=== PATIENT | female | born 1970 | race Caucasian/White ===

== ENCOUNTER → 2019-02-23 | Outpatient (CLI) | payer MEDICAID ==
[~2019-02-23] MED LIST: CITA10TA; CPR500T PO; MTF500T; PRM25T PO; RIZA10TA23
--- NOTE | 2019-02-23 12:14 | Diagnostic Imaging Report ---
INDICATION: Chronic low back pain. TIME OF EXAM: 11:57 AM 3 views lumbar spine were obtained. FINDINGS: Curvature and alignment is normal. Vertebral body heights are well-maintained. No acute compression fracture is seen. There is degenerative disc disease L2-L3 level with disc space narrowing and marginal spurring. Moderate stool throughout the right colon is noted. IMPRESSION: Lumbar spondylosis. No acute bony abnormality is detected. Dictated by: Dictated on workstation # [id number]
== END ==
LOC: RAD FS 11:50
PROVIDERS: ATTEND Family Medicine
DX: M47.816 Spondylosis without myelopathy or radiculopathy, lumbar region (principal)
CPT/HCPCS: 72100

== ENCOUNTER → 2019-06-14 | Outpatient (CLI) | payer SELFPAY ==
--- NOTE | 2019-06-14 13:04 | Diagnostic Imaging Report ---
INDICATION: Right leg injury and pain. Time of exam 12:53 p.m. FINDINGS: Two views of the right tibia and fibula were obtained. Alignment at the knee and ankle is normal. Tibia and fibula appear to be intact. No fractures are seen. Soft tissues are unremarkable. IMPRESSION: No acute bony abnormality is detected. Dictated by: Dictated on workstation # [id number]
== END ==
LOC: RAD FS 12:39
PROVIDERS: ATTEND Family Medicine
DX: S89.91XA Unspecified injury of right lower leg, initial encounter (principal)
CPT/HCPCS: 73590

== ENCOUNTER → 2020-04-09 | Outpatient (CLI) | payer MEDICAID ==
--- NOTE | 2020-04-09 17:59 | Diagnostic Imaging Report ---
INDICATION: Cervicalgia 3 views of the cervical spine show normal height and alignment of the vertebral bodies. There is mild disc space narrowing and spondylosis at C4-C5. There is moderate disc space narrowing and spondylosis at C6-C7. There are mild degenerated facets. No fracture or other acute abnormality is seen. IMPRESSION: There are degenerative changes present with no acute abnormality seen. Dictated by: Dictated on workstation # [id number]
--- NOTE | 2020-04-09 18:10 | Diagnostic Imaging Report ---
INDICATION: Falling with low back pain. TIME OF EXAM: 05:39 p.m. FINDINGS: Frontal and lateral views of the lumbar spine were obtained. Curvature and alignment is within normal limits. Vertebral body heights are maintained. No acute compression fracture is seen. There is generalized degenerative disc disease with variable disc space narrowing and marginal spurring. There is lower lumbar facet arthropathy. Frontal view does demonstrate a left lower quadrant calcification. This could represent phlebolith versus ureteral calculus. Clinical correlation is recommended. IMPRESSION: Lumbar spondylosis. No acute bony abnormality is detected. Dictated by: Dictated on workstation # [id number]
== END ==
LOC: RAD FS 17:11
PROVIDERS: ATTEND Nurse Practitioner
DX: M47.816 Spondylosis without myelopathy or radiculopathy, lumbar region (principal); M47.812 Spondylosis without myelopathy or radiculopathy, cervical region
CPT/HCPCS: 72040; 72100

== ENCOUNTER 2020-04-21 12:54 | Emergency (ER) | payer MEDICAID ==
[~2020-04-21] VITALS: Ht 160 cm; Wt 91.0 kg
--- OUTSIDE RECORDS SUMMARY | 2020-04-21 13:01 | XMS REPORT | Continuity of Care Document ---
Author Organization Unknown Address Unknown Phone Unavailable Allergies Active Description Code Type Severity Reaction Onset Reported/Identified Relationship to Patient Clinical Status Yes hydrocodone [id number] Drug Aller gy Mild N/A 06/28/2009 Medications There is no data. Problems Date Dx Coded Attending Type Code Diagnosis Diagnosed By 03/08/2019 NATHAN VEGA, BONY Tolbert Ot M47.816 SPONDYLOSIS W/O MYELOPATHY OR RADICULOPA 06/14/2019 BONY EVANS MD, Ot M47.816 SPONDYLOSIS W/O MYELOPATHY OR RADICULOPA 06/16/2019 NATHAN VEGA, BONY Tolbert Ot S89.91XA UNSPECIFIED INJURY OF RIGHT LOWER LEG, I 04/09/2020 NATHAN VEGA, BONY Tolbert Ot M47.816 SPONDYLOSIS W/O MYELOPATHY OR RADICULOPA 04/09/2020 BONY EVANS MD Ot S89.91XA UNSPECIFIED INJURY OF RIGHT LOWER LEG, I Procedures There is no data. Results Test Result Range TSH w/ FREE T4 - 02/16/19 11:59 TSH 6.68 mIU/L NRG T4, FREE 1.1 ng/dL 0.8-1.8 CMP - 02/16/19 11:59 GLUCOSE 78 mg/dL 65-99 UREA NITROGEN (BUN) 12 mg/dL 7-25 CREATININE 0.77 mg/dL 0.50-1.10 eGFR NON-AFR. GREEK 91 mL/min/1.73m2 > OR = 60 eGFR 105 mL/min/1.73m2 > OR = 60 BUN/CREATININE RATIO NOT APPLICABLE (calc) 6-22 SODIUM 140 mmol/L 135-146 POTASSIUM 4.5 mmol/L 3.5-5.3 CHLORIDE 102 mmol/L 98-110 CARBON DIOXIDE 35 mmol/L 20-32 CALCIUM 9.5 mg/dL 8.6-10.2 PROTEIN, TOTAL 7.1 g/dL 6.1-8.1 ALBUMIN 4.2 g/dL 3.6-5.1 GLOBULIN 2.9 g/dL (calc) 1.9-3.7 ALBUMIN/GLOBULIN RATIO 1.4 (calc) 1.0-2. 5 BILIRUBIN, TOTAL 0.5 mg/dL 0.2-1.2 ALKALINE PHOSPHATASE 58 U/L 33-115 AST 19 U/L 10-35 ALT 20 U/L 6-29 CBC w/MANUAL DIFF - 02/16/19 11:59 WHITE BLOOD CELL COUNT 6.2 Thousand/uL 3 .8-10.8 RED BLOOD CELL COUNT 4.60 Million/uL 3.8 0-5.10 HEMOGLOBIN 14.4 g/dL 11.7-15.5 HEMATOCRIT 42.8 % 35.0-45.0 MCV 93.0 fL 80.0-100.0 MCH 31.3 pg 27.0-33.0 MCHC 33.6 g/dL 32.0-36.0 RDW 13.0 % 11.0-15.0 PLATELET COUNT 275 Thousand/uL 140-400 MPV 10.8 fL 7.5-12.5 ABSOLUTE NEUTROPHILS 2976 cells/uL 1500- 7800 ABSOLUTE MONOCYTES 558 cells/uL 200-950 ABSOLUTE EOSINOPHILS 496 cells/uL 15-500 ABSOLUTE BASOPHILS 0 cells/uL 0-200 NEUTROPHILS 48.0 % NRG LYMPHOCYTES 35.0 % NRG MONOCYTES 9.0 % NRG EOSINOPHILS 8.0 % NRG BASOPHILS 0 % NRG ABSOLUTE LYMPHOCYTES 2170 cells/uL 850-3 900 PLATELET ESTIMATION ADEQUATE ADEQUATE COMMENT(S) NR CULTURE, URINE - 02/16/19 11:59 CULTURE, URINE, ROUTINE SEE NOTE NR HEPATITIS PROFILE - 06/14/19 12:48 HEPATITIS A IGM NON-REACTIVE NON-REACTI VE HEPATITIS B SURFACE ANTIGEN NON-REACTIVE NON-REACTIVE HEPATITIS B CORE ANTIBODY (IGM) NON-REACTIVE NON-REACTIVE HEPATITIS C ANTIBODY NON-REACTIVE NON-R EACTIVE SIGNAL TO CUT-OFF 0.06 <1.00 CMP - 06/14/19 12:48 GLUCOSE 92 mg/dL 65-99 UREA NITROGEN (BUN) 14 mg/dL 7-25 CREATININE 0.93 mg/dL 0.50-1.10 eGFR NON-AFR. GREEK 72 mL/min/1.73m2 > OR = 60 eGFR 84 mL/min/1.73m2 > OR = 60 BUN/CREATININE RATIO NOT APPLICABLE (calc) 6-22 SODIUM 141 mmol/L 135-146 POTASSIUM 3.7 mmol/L 3.5-5.3 CHLORIDE 103 mmol/L 98-110 CARBON DIOXIDE 29 mmol/L 20-32 CALCIUM 9.3 mg/dL 8.6-10.2 PROTEIN, TOTAL 7.4 g/dL 6.1-8.1 ALBUMIN 4.5 g/dL 3.6-5.1 GLOBULIN 2.9 g/dL (calc) 1.9-3.7 ALBUMIN/GLOBULIN RATIO 1.6 (calc) 1.0-2. 5 BILIRUBIN, TOTAL 0.7 mg/dL 0.2-1.2 ALKALINE PHOSPHATASE 74 U/L 33-115 AST 30 U/L 10-35 ALT 38 U/L 6-29 GC/CHLAMYDIA (SWAB OR URINE)-RAPID - 07/21 18:15 CHLAMYDIA TRACHOMATIS RNA, TMA NOT DETECTED NOT DETECTED NEISSERIA GONORRHOEAE RNA, TMA NOT DETECTED NOT DETECTED COMMENT NRG Encounters ACCT No. Visit Date/Time Discharge Status Pt. Type Provider Facility Loc./Unit Complaint [id number] 04/09/2020 15:40:00 04/09/2020 23:59:5 9 CLS Outpatient MICHEL ALBA [facility] [id number] 04/09/2020 15:40:00 Document Registration [id number] 06/14/2019 11:40:00 Document Registration [id number] 02/16/2019 11:30:00 Document Registration [id number] 10/07/2013 12:35:00 013 23:59:59 CLS Outpatient [id number] 04/09/2020 17:11:00 020 23:59:59 CLS Outpatient MICHEL ALBA APRN [facility] M54.5 M54.2 [id number] 06/14/2019 12:39:00 019 23:59:59 CLS Outpatient BONY EVANS MD [facility] FS S89.91XA [id number] 02/23/2019 11:50:00 019 23:59:59 CLS Outpatient BONY EVANS MD [facility] FS G89.29 M54.5
--- NOTE | 2020-04-21 13:02 | ED General ---
General Chief Complaint: Cough/Cold/Flu Symptoms Stated Complaint: COUGH History of Present Illness Date Seen by Provider: Apr 21, 2020 Time Seen by Provider: 13:01 Initial Comments Patient presenting to emergency department for evaluation of a cough that has been going on for approximately 2 months. She says she is tired of coughing and wanted to be seen today. She says the cough is nonproductive and she denies any fevers chills chest pain nausea vomiting. She says she cannot sleep tonight because she feels short of breath. Patient is in no obvious distress with normal vital signs. Allergies and Home Medications Allergies Coded Allergies: Hydrocodone (Unverified Allergy, Mild, 06/28/09) Home Medications Ciprofloxacin 500 Mg Tablet, 1 TAB PO BID Prescribed by: BRAD REDMOND on 04/17/101745 Citalopram Hydrobromide 10 Mg Tablet, DAILY, (Reported) Rizatriptan Benzoate 10 Mg Tablet, PRN, (Reported) Patient Home Medication List Home Medication List Reviewed: Yes Review of Systems Review of Systems Constitutional: no symptoms reported EENTM: nose congestion Respiratory: cough, short of breath Cardiovascular: no symptoms reported Gastrointestinal: no symptoms reported Musculoskeletal: no symptoms reported Skin: no symptoms reported Psychiatric/Neurological: No Symptoms Reported Past [id number] Hx Patient Social History Recent Foreign Travel: No Contact w/Someone Who Travel: No Physical Exam Vital Signs Vital Signs - First Documented 04/21/20 13:06 Temp 36.2 Pulse 92 Resp 24 B/P (MAP) 149/86 (107) O2 Delivery Room Air Capillary Refill : Height, Weight, BMI Height: '" Weight: lbs. oz. kg; BMI Method:Stated General Appearance: No Apparent Distress, WD/WN Respiratory: No Respiratory Distress, Wheezing Cardiovascular: Regular Rate, Rhythm Extremity: No Pedal Edema Neurologic/Psychiatric: Alert, Oriented x3 Skin: Warm/Dry Progress/Results/Core Measures Suspected Sepsis SIRS Temperature: Pulse: Respiratory Rate: Blood Pressure / Mean: Results/Orders My Orders Orders - PACHECO HOOVER DO Chest 1 View Ap/Pa Only (04/21/20 13:02) Albuterol/Ipra Inhalation Soln (Duoneb I (04/21/20 13:15) Svn Small Volume Nebulizer (04/21/20 13:08) Prednisone Tablet (Deltasone Tablet) (04/21/20 13:15) Benzonatate Capsule (Tessalon Perles) (04/21/20 13:15) Medications Given in ED Current Medications Medications Dose Ordered Sig/Yisel Route Start Time Stop Time Status Last Admin Dose Admin Albuterol/ Ipratropium 3 ml ONCE ONCE INH 04/21/20 13:15 04/21/20 13:16 DC 04/21/20 13:16 3 ML Prednisone 60 mg ONCE ONCE PO 04/21/20 13:15 04/21/20 13:16 DC 04/21/20 13:15 60 MG Vital Signs/I&O 04/21/20 13:06 Temp 36.2 Pulse 92 Resp 24 B/P (MAP) 149/86 (107) O2 Delivery Room Air Capillary Refill : Progress Note : Progress Note Patient with frequent cough likely related to her COPD and continued smoking. She does have congestion with postnasal drip which likely is making symptoms worse. I will check a chest x-ray and treat her here with a DuoNeb prednisone Tessalon and reassess. Appears patient has a pneumonia on her chest x-ray. She continues to saturate in the mid upper 90s and is in no respiratory distress and her cough improved after treatment here. Patient meets the requirements for inpatient treatment however given her COPD I told her she should be rechecked within the next 1-2 days and she should come back to emergency department with worsening shortness of breath fevers or other general concerns. Patient aware and agreeable with plan and verbalized understanding of the above instructions. Departure Impression Primary Impression: Pneumonia Qualified Codes: J18.1 - Lobar pneumonia, unspecified organism Additional Impression: COPD with exacerbation Disposition: 01 HOME, SELF-CARE Condition: Stable Departure-Patient Inst. Referrals: [facility] (PCP) Primary Care Physician MICHEL ALBA APRN (Family) Primary Care Physician Patient Instructions: Pneumonia, Adult (DC) Scripts Azelastine HCl (Azelastine HCl) 137 Mcg/0.137 Ml [place].pump 137 MCG NS BID, #1 EA Prov: PACHECO HOOVER DO 04/21/20 Albuterol Sulfate (PROAIR HFA) 1 Puff Puff 2 PUFF IH Q4H, #1 INHALER 1 PUFF = 90 MCG Prov: PACHECO HOOVER DO 04/21/20 Azithromycin (Azithromycin) 250 Mg Tablet 250 MG PO UD, #6 TAB TAKE 2 TABLETS ON DAY ONE THEN TAKE 1 TABLET DAILY FOR FOUR MORE DAYS Prov: PACHECO HOOVER DO 04/21/20 Benzonatate (TESSALON PERLES) 100 Mg Capsule 100 MG PO TID PRN for COUGH, #14 CAP Prov: PACHECO HOOVER DO 04/21/20 Prednisone (Prednisone) 20 Mg Tab 60 MG PO DAILY, #12 TAB 0 Refills Prov: PACHECO HOOVER DO 04/21/20 PACHECO HOOVER DO Apr 21, 2020 13:02
[2020-04-21] MEDS ORDERED: BENZONATATE 100 MG (TESSALON) CAPSULE PO SCH (13:15)
[2020-04-21] MEDS ORDERED: RT-ALBUTEROL/IPRATROPIUM 3 ML (DUONEB) VIAL INH ONE (13:15)
[2020-04-21] MEDS ORDERED: predniSONE 20 MG TAB PO ONE (13:15)
--- NOTE | 2020-04-21 13:28 | Diagnostic Imaging Report ---
CLINICAL INDICATION: Patient with cough x2 months. Patient has history of COPD. EXAM: Portable chest x-ray upright view. COMPARISON: None. FINDINGS: There is mild patchy airspace opacity in the right lower lung field region which may represent small lung infiltrate. There is linear lung markings throughout the upper lung field regions which may be chronic. The remainder of the lungs are clear. There is no pleural effusion or pneumothorax. Pulmonary vasculature and cardiac silhouette is within normal limits. There are degenerative spurs involving the spine. IMPRESSION: 1: There is a subtle airspace opacity involving the right lower lung field region concerning for lung infiltrate. 2: Suspected chronic lung changes involving both upper lung renee. Dictated by: Dictated on workstation # [id number]
[2020-04-21] MEDS ORDERED: AZEL137S11 NS (13:39)
[2020-04-21] MEDS ORDERED: BENZ100C18 PO (13:39)
[2020-04-21] MEDS ORDERED: RT-ALBUINH IH (13:39)
[2020-04-21] MEDS ORDERED: AZIT250T12 PO (13:39)
[2020-04-21] MEDS ORDERED: PRD20T PO (13:39)
[2020-04-21 13:49] VITALS: BP 124/62
== END 2020-04-21 13:45 | disposition home or self-care (01) ==
LOC: EDUNIT# 12:54 → ER FS 12:55
DX: J18.9 Pneumonia, unspecified organism (principal); J44.1 Chronic obstructive pulmonary disease with (acute) exacerbation; J44.0 Chronic obstructive pulmonary disease with (acute) lower respiratory infection; Z88.5 Allergy status to narcotic agent
CPT/HCPCS: 71045; 94640

== ENCOUNTER → 2020-05-15 | Outpatient (CLI) | payer MEDICAID ==
[~2020-05-15] MED LIST changes: +AZEL137S11 NS; +AZIT250T12 PO; +BENZ100C18 PO; +PRD20T PO; +RT-ALBUINH IH
--- NOTE | 2020-05-15 10:30 | Diagnostic Imaging Report ---
EXAMINATION: CHEST (PA AND LATERAL) CLINICAL INDICATION: 49-year-old female, cough. Pneumonia. COMPARISON: April 21, 2020. FINDINGS: Heart size and mediastinal contours are unremarkable. There is no identified pneumothorax. There is no pleural effusion. There is no identified focal airspace consolidation. Previously questioned areas of opacity in the right mid and lower lung zone on comparison radiographs are not well seen currently. IMPRESSION: 1. No identified acute cardiopulmonary abnormality. Dictated by: Dictated on workstation # [id number]
[2020-05-15 10:41] LABS: BASOPHILS % (AUTO) 1 % (0-10); EOSINOPHILS # (AUTO) 0.4 10^3/uL (0.0-0.3); EOSINOPHILS % (AUTO) 5 % (0-10); HEMATOCRIT 45 % (35-52); HEMOGLOBIN 14.6 G/DL (11.5-16.0); LYMPHOCYTES # (AUTO) 1.9 X 10^3 (1.0-4.0); LYMPHOCYTES % (AUTO) 22 % (12-44); MEAN CORPUSCULAR HEMOGLOBIN 31 PG (25-34); MEAN CORPUSCULAR HGB CONC 33 G/DL (32-36); MEAN CORPUSCULAR VOLUME 94 FL (80-99); MONOCYTES # (AUTO) 0.5 X 10^3 (0.0-1.0); MONOCYTES % (AUTO) 6 % (0-12); NEUTROPHILS # (AUTO) 5.5 X 10^3 (1.8-7.8); NEUTROPHILS % (AUTO) 66 % (42-75); PLATELET COUNT 251 10^3/uL (130-400); RED CELL DISTRIBUTION WIDTH 13.3 % (10.0-14.5); WHITE BLOOD COUNT 8.4 10^3/uL (4.3-11.0)
[2020-05-15 10:56] LABS: ALANINE AMINOTRANSFERASE 20 U/L (0-55); ALKALINE PHOSPHATASE 92 U/L (40-136); BILIRUBIN,TOTAL 0.3 MG/DL (0.1-1.0); BUN/CREATININE RATIO 14; CALCIUM 9.1 MG/DL (8.5-10.1); CARBON DIOXIDE 26 MMOL/L (21-32); CHLORIDE 103 MMOL/L (98-107); CREATININE SERUM 0.71 MG/DL (0.60-1.30); GFR ESTIMATED > 60; GLUCOSE 97 MG/DL (70-105); POTASSIUM 4.5 MMOL/L (3.6-5.0); SODIUM 139 MMOL/L (135-145); TOTAL PROTEIN 7.1 GM/DL (6.4-8.2)
== END ==
LOC: LAB FS 09:46
PROVIDERS: ATTEND Family Medicine
DX: J44.9 Chronic obstructive pulmonary disease, unspecified (principal); Z20.828 Contact with and (suspected) exposure to other viral communicable diseases
CPT/HCPCS: 36415; 71046; 80053; 85025; U0002; 87635

== ENCOUNTER 2020-06-03 20:19 | Emergency (ER) | payer MEDICAID ==
[~2020-06-03] VITALS: Ht 160 cm; Wt 90.7 kg
[2020-06-03 21:29] LABS: BASOPHILS % (AUTO) 0 % (0-10); EOSINOPHILS # (AUTO) 0.5 10^3/uL (0.0-0.3); EOSINOPHILS % (AUTO) 6 % (0-10); HEMATOCRIT 42 % (35-52); LYMPHOCYTES # (AUTO) 2.3 X 10^3 (1.0-4.0); LYMPHOCYTES % (AUTO) 31 % (12-44); MEAN CORPUSCULAR HEMOGLOBIN 31 PG (25-34); MEAN CORPUSCULAR HGB CONC 33 G/DL (32-36); MEAN CORPUSCULAR VOLUME 94 FL (80-99); MEAN PLATELET VOLUME 10.7 FL (7.4-10.4); MONOCYTES # (AUTO) 0.5 X 10^3 (0.0-1.0); MONOCYTES % (AUTO) 7 % (0-12); NEUTROPHILS # (AUTO) 4.2 X 10^3 (1.8-7.8); NEUTROPHILS % (AUTO) 56 % (42-75); PLATELET COUNT 271 10^3/uL (130-400); RED CELL DISTRIBUTION WIDTH 13.9 % (10.0-14.5); WHITE BLOOD COUNT 7.6 10^3/uL (4.3-11.0)
--- NOTE | 2020-06-03 21:31 | Diagnostic Imaging Report ---
INDICATION: Shortness of breath Frontal chest obtained at 09:12 p.m. and compared to 05/15/2020. FINDINGS: The heart is normal in size. There is mild central vascular prominence which is increased compared to the prior study. There is no definite consolidation or pneumothorax or pleural fluid. There mild chronic appearing increased interstitial markings. IMPRESSION: Mild increased central vascular prominence compared to the prior study. No new consolidation or pleural fluid. Dictated by: Dictated on workstation # [id number]
[2020-06-03 21:43] LABS: FIBRIN DEGRADATION PRODUCTS 1.32 UG/ML (0.00-0.49); INR 0.9 (0.8-1.4); PROTHROMBIN TIME PATIENT 12.4 SEC (12.2-14.7)
[2020-06-03 21:51] LABS: ALANINE AMINOTRANSFERASE 19 U/L (0-55); ALBUMIN 3.7 GM/DL (3.2-4.5); ALKALINE PHOSPHATASE 66 U/L (40-136); BILIRUBIN,TOTAL 0.4 MG/DL (0.1-1.0); BUN/CREATININE RATIO 10; CALCIUM 8.9 MG/DL (8.5-10.1); CARBON DIOXIDE 26 MMOL/L (21-32); CHLORIDE 102 MMOL/L (98-107); CREATININE SERUM 0.79 MG/DL (0.60-1.30); GFR ESTIMATED > 60; GLUCOSE 106 MG/DL (70-105); MAGNESIUM 2.1 MG/DL (1.6-2.4); POTASSIUM 4.5 MMOL/L (3.6-5.0); SODIUM 139 MMOL/L (135-145); TOTAL PROTEIN 6.8 GM/DL (6.4-8.2)
[2020-06-03] MEDS ORDERED: RX-ALBUTEROL INHALER 8 GM HFA (VENTOLIN) IH STA (21:51)
[2020-06-03 21:53] LABS: ERYTHROCYTE SEDIMENTATION RATE 14 MM/HR (0-30)
--- NOTE | 2020-06-03 21:54 | ED Respiratory ---
General Chief Complaint: Cough/Cold/Flu Symptoms Stated Complaint: SOB/COUGH Nursing Triage Note: Assisted pt via ED w/c from POV with c/o SOA et cough. Pt reports onset of s/s began on 05/15/20 when she was diagnosed with bronchitis. Initial SPO2 94% via RA with labored breathing noted. Pt reports increase in severity of cough et SOA. Pt denies fever or chills. A&OX4. Source: patient (SOMEWHAT DIFFICULT/LIMITED HISTORIAN) History of Present Illness Date Seen by Provider: Jun 03, 2020 Time Seen by Provider: 21:00 Initial Comments PT ARRIVES VIA POV FROM [place] C/O SHORTNESS OF BREATH C/O CHEST DISCOMFORT--RIBS HURT TO COUGH AND HER CHEST "JUST HURTS ALL THE TIME" C/O NON-PRODUCTIVE COUGH STATES SYMPTOMS ONGOING FOR OVER 3 MONTHS, GETTING WORSE NO FEVER/SWEATS/CHILLS NO SWELLING IN LEGS/FEET OR PAIN IN CALVES NO SORE THROAT OR CHANGES IN TASTE OR SMELL NO NASAL DRAINAGE OR SINUS PAIN NO GI SYMPTOMS NO URINARY SYMPTOMS PT SEEN AT [facility] 04/21/20 FOR THESE SYMPTOMS. HAD REPORTED THAT SHE HAD A COUGH FOR 2 MONTHS AT THAT TIME. NO COVID TESTING PERFORMED AT THAT TIME SHE WAS DX WITH RLL PNEUMONIA AND SENT HOME WITH RX'S FOR AZELASTINE, ALBUTEROL INHALER, ZITHROMAX, TESSALON, PREDNISONE. UNABLE TO STATE IF HER SYMPTOMS IMPROVED WITH THOSE MEDICATIONS. SAW DR. EVANS 05/15/20 FOR SAME SYMPTOMS. HAD OUTPATIENT COVID TEST AND WAS NEGATIVE. NO OTHER TESTS WERE DONE. GIVEN RX FOR PREDNISONE. AGAIN IS UNABLE TO STATE IF HER SYMPTOMS IMPROVED ON MEDICATIONS. HAS NOT ATTEMPTED TO FOLLOW UP WITH DR. EVANS AT ANY TIME SINCE. HAS HISTORY OF COPD AND CONTINUES TO SMOKE UP TO 2 PPD PT HAS BEEN PRESCRIBED 3 INHALERS, CLAIMS SHE HAS BEEN USING THEM--LAST USED ALBUTEROL A FEW HOURS AGO. DOES NOT HAVE A SPACER HAS BEEN PRESCRIBED SPIRIVA ON 03/18/20-NOT FILLED SINCE THEN PRESCRIBED FLUTICASONE/SALMETEROL ON 05/22/20 PRESCRIBED ALBUTEROL INHALER 05/26/20 PCP: DR. EVANS Allergies and Home Medications Allergies Coded Allergies: Hydrocodone (Unverified Allergy, Mild, 06/28/09) Home Medications Albuterol Sulfate 1 Puff Puff, 2 PUFF IH Q4H 1 PUFF = 90 MCG Prescribed by: PACHECO HOOVER on 04/21/201338 Azelastine HCl 137 Mcg/0.137 Ml [place].pump, 137 MCG NS BID Prescribed by: PACHECO HOOVER on 04/21/201338 Azithromycin 250 Mg Tablet, 250 MG PO UD TAKE 2 TABLETS ON DAY ONE THEN TAKE 1 TABLET DAILY FOR FOUR MORE DAYS Prescribed by: PACHECO HOOVER on 04/21/201338 Azithromycin 500 Mg Tablet, 500 MG PO DAILY Prescribed by: VERONICA GONZALEZ on 06/04/2022 Benzonatate 100 Mg Capsule, 100 MG PO TID PRN for COUGH Prescribed by: PACHECO HOOVER on 04/21/201338 Benzonatate 100 Mg Capsule, 100-200 MG PO TID Prescribed by: VERONICA GONZALEZ on 06/04/2022 Cefdinir 300 Mg Capsule, 300 MG PO BID Prescribed by: VERONICA GONZALEZ on 06/04/2022 Ciprofloxacin 500 Mg Tablet, 1 TAB PO BID Prescribed by: BRAD REDMOND on 04/17/10 1746 Citalopram Hydrobromide 10 Mg Tablet, DAILY, (Reported) Guaifenesin/Dextromethorphan 1 Each Tbmp.12hr, 1 EACH PO BID Prescribed by: VERONICA GONZALEZ on 06/04/2022 Methylprednisolone 4 Mg Tab.ds.pk, 4 MG PO UD PER DOSE PACK INSTRUCTIONS Prescribed by: VERONICA GONZALEZ on 06/04/2022 Prednisone 20 Mg Tab, 60 MG PO DAILY Prescribed by: PACHECO HOOVER on 04/21/201338 Rizatriptan Benzoate 10 Mg Tablet, PRN, (Reported) Patient Home Medication List Home Medication List Reviewed: Yes Review of Systems Review of Systems Constitutional: no symptoms reported; No chills, No diaphoresis, No fever EENTM: no symptoms reported; No ear pain, No nose congestion, No throat pain Respiratory: see HPI, cough, short of breath Cardiovascular: see HPI, chest pain Gastrointestinal: no symptoms reported Genitourinary: no symptoms reported Musculoskeletal: no symptoms reported Skin: no symptoms reported Psychiatric/Neurological: No Symptoms Reported Hematologic/Lymphatic: No Symptoms Reported Immunological/Allergic: no symptoms reported Past Hzhaweu-Dgzzlc-Fgmres Hx Past Med/Social Hx: Reviewed and Corrections made Patient Social History Alcohol Use: Denies Use Recreational Drug Use: Yes (THC) Drug of Choice: MARIJUANA Smoking Status: Current Everyday Smoker (2 PPD) Type Used: Cigarettes (2 PPD) 2nd Hand Smoke Exposure: Yes Recent Foreign Travel: No Contact w/Someone Who Travel: No Recent Infectious Disease Expo: No Recent Hopitalizations: No Physical Abuse: No Sexual Abuse: No Mistreated: No Fear: No Seasonal Allergies Seasonal Allergies: No Past Medical History Surgeries: Yes Section, Eye Surgery, Hysterectomy Respiratory: Yes COPD, Emphysema Cardiac: Yes Hypertension Neurological: Yes Seizure Disorder Female Reproductive Disorders: Denies MANAGER INFORMATION History: Menopausal (NO PERIOD FOR OVER A YEAR) Genitourinary: No Gastrointestinal: Yes (HEPATITIS B & LIVER FAILURE--STATES SHE WAS AT [facility]/CANNOT GIVE DETAILS OF [place]) Hepatitis Musculoskeletal: Yes (CHRONIC GENERALIZED PAIN) Degenerate Disk Disease, Chronic Back Pain Endocrine: Yes (CLAIMS "GESTATIONAL DIABETES FOR 12 YEARS-IT NEVER WENT AWAY"- NO MEDS) Diabetes, Non-Insulin dep HEENT: No Cancer: No Psychosocial: Yes Anxiety, Bipolar, Depression Integumentary: No Blood Disorders: No Physical Exam Vital Signs - First Documented 06/03/20 21:05 Temp 36.2 Pulse 76 Resp 26 B/P (MAP) 143/77 (99) Pulse Ox 94 O2 Delivery Room Air Capillary Refill : Less Than 3 Seconds Height: '" Weight: lbs. oz. kg; 35.00 BMI Method:Stated General Appearance: WD/WN, no apparent distress, other (UNKEMPT, MULTICOLORED HAIR--PINK, GREEN, OTHER COLORS. NO DYSPNEA ON MY EXAM. PT TALKS IN FULL SENTENCES. 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 tested, no motor/sensory deficits, alert, oriented x 3, other (ANXIOUS) Skin: normal color, warm/dry, tattoos/piercings Focused Exam Lactate Level 06/03/20 21:15: Lactic Acid Level 1.09 Lactic Acid Level Laboratory Tests Test 06/03/20 21:15 Lactic Acid Level 1.09 MMOL/L (0.50-2.00) Progress/Results/Core Measures Suspected Sepsis Recent Fever Within 48 Hours: No New/Unexplained Altered Menta: No SIRS Temperature: Pulse: 76 Respiratory Rate: 26 Laboratory Tests 06/03/20 21:15: White Blood Count 7.6 Blood Pressure 143 /77 Mean: 99 06/03/20 21:15: Lactic Acid Level 1.09 Laboratory Tests 06/03/20 21:15: Creatinine 0.79, INR Comment 0.9, Platelet Count 271, Total Bilirubin 0.4 Results/Orders Lab Results Laboratory Tests Test 06/03/20 21:15 06/03/20 21:25 06/03/20 23:25 Range/Units White Blood Count 7.6 4.3-11.0 10^3/uL Red Blood Count 4.50 4.35-5.85 10^6/uL Hemoglobin 14.0 11.5-16.0 G/DL Hematocrit 42 35-52 % Mean Corpuscular Volume 94 80-99 FL Mean Corpuscular Hemoglobin 31 25-34 PG Mean Corpuscular Hemoglobin Concent 33 32-36 G/DL Red Cell Distribution Width 13.9 10.0-14.5 % Platelet Count 271 130-400 10^3/uL Mean Platelet Volume 10.7 H 7.4-10.4 FL Neutrophils (%) (Auto) 56 42-75 % Lymphocytes (%) (Auto) 31 12-44 % Monocytes (%) (Auto) 7 0-12 % Eosinophils (%) (Auto) 6 0-10 % Basophils (%) (Auto) 0 0-10 % Neutrophils # (Auto) 4.2 1.8-7.8 X 10^3 Lymphocytes # (Auto) 2.3 1.0-4.0 X 10^3 Monocytes # (Auto) 0.5 0.0-1.0 X 10^3 Eosinophils # (Auto) 0.5 H 0.0-0.3 10^3/uL Basophils # (Auto) 0.0 0.0-0.1 10^3/uL Erythrocyte Sedimentation Rate 14 0-30 MM/HR Prothrombin Time 12.4 12.2-14.7 SEC INR Comment 0.9 0.8-1.4 Activated Partial Thromboplast Time 26 24-35 SEC D-Dimer 1.32 H 0.00-0.49 UG/ML Sodium Level 139 135-145 MMOL/L Potassium Level 4.5 3.6-5.0 MMOL/L Chloride Level 102 98-107 MMOL/L Carbon Dioxide Level 26 21-32 MMOL/L Anion Gap 11 5-14 MMOL/L Blood Urea Nitrogen 8 7-18 MG/DL Creatinine 0.79 0.60-1.30 MG/DL Estimat Glomerular Filtration Rate > 60 BUN/Creatinine Ratio 10 Glucose Level 106 H 70-105 MG/DL Lactic Acid Level 1.09 0.50-2.00 MMOL/L Calcium Level 8.9 8.5-10.1 MG/DL Corrected Calcium 9.1 8.5-10.1 MG/DL Magnesium Level 2.1 1.6-2.4 MG/DL Total Bilirubin 0.4 0.1-1.0 MG/DL Aspartate Amino Transf (AST/SGOT) 19 5-34 U/L Alanine Aminotransferase (ALT/SGPT) 19 0-55 U/L Alkaline Phosphatase 66 40-136 U/L Lactate Dehydrogenase 293 H 125-220 U/L Troponin I < 0.028 <0.028 NG/ML C-Reactive Protein High Sensitivity 2.63 H 0.00-0.50 MG/DL B-Type Natriuretic Peptide 20.1 <100.0 PG/ML Total Protein 6.8 6.4-8.2 GM/DL Albumin 3.7 3.2-4.5 GM/DL Procalcitonin 0.02 <0.10 NG/ML Urine Color YELLOW Urine Clarity SL CLOUDY Urine pH 8.5 5-9 Urine Specific [place] 1.020 1.016-1.022 Urine Protein NEGATIVE NEGATIVE Urine Glucose (UA) NEGATIVE NEGATIVE Urine Ketones NEGATIVE NEGATIVE Urine Nitrite POSITIVE H NEGATIVE Urine Bilirubin NEGATIVE NEGATIVE Urine Urobilinogen 1.0 < = 1.0 MG/DL Urine Leukocyte Esterase TRACE H NEGATIVE Urine RBC (Auto) NEGATIVE NEGATIVE Urine RBC NONE /HPF Urine WBC 10-25 H /HPF Urine Squamous Epithelial Cells 0-2 /HPF Urine Crystals NONE /LPF Urine Bacteria LARGE H /HPF Urine Casts NONE /LPF Urine Mucus NEGATIVE /LPF Urine Culture Indicated YES Urine Opiates Screen NEGATIVE NEGATIVE Urine Oxycodone Screen NEGATIVE NEGATIVE Urine Methadone Screen NEGATIVE NEGATIVE Urine Propoxyphene Screen NEGATIVE NEGATIVE Urine Barbiturates Screen NEGATIVE NEGATIVE Ur Tricyclic Antidepressants Screen NEGATIVE NEGATIVE Urine Phencyclidine Screen NEGATIVE NEGATIVE Urine Amphetamines Screen NEGATIVE NEGATIVE Urine Methamphetamines Screen NEGATIVE NEGATIVE Urine Benzodiazepines Screen NEGATIVE NEGATIVE Urine Cocaine Screen NEGATIVE NEGATIVE Urine Cannabinoids Screen POSITIVE H NEGATIVE My Orders Orders - VERONICA GONZALEZ DO Ed Iv/Invasive Line Start (06/03/20 21:00) Ekg Tracing (06/03/20 21:00) Monitor-Rhythm Ecg Trace Only (06/03/20 21:00) BNP (06/03/20:00) Cbc With Automated Diff (06/03/20:00) Comprehensive Metabolic Panel (06/03/20:00) Hs C Reactive Protein (06/03/20:00) Fibrin Degradation Products (06/03/20:00) Lactic Acid Analyzer (06/03/20:00) Magnesium (06/03/20:00) Protime With Inr (06/03/20:00) Partial Thromboplastin Time (06/03/20 21:00) Blood Culture (06/03/20 21:00) Erythrocyte Sedimentation Rate (06/03/20 21:00) Procalcitonin (Pct) (06/03/20 21:00) LDH (06/03/20 21:00) Chest 1 View, Ap/Pa Only (06/03/20 21:00) Coronavirus Sars-Cov-2 So 2018 (06/03/20 21:00) Methylprednisolone Sod Succ (Solu-Medrol (06/03/20 22:00) Rx-Albuterol Inhaler (Rx-Ventolin Hfa In (06/03/20 21:51) Benzonatate Capsule (Tessalon Perles) (06/03/20 22:00) Ct Angio Chest W (06/03/20 22:13) Troponin I (06/03/20 22:21) Iohexol Injection (Omnipaque 350 Mg/Ml 1 (06/03/20 23:45) Received Contrast (Hold Metformin- Contr (06/03/20 23:45) Ns (Ivpb) (Sodium Chloride 0.9% Ivpb Bag (06/03/20 23:45) Drug Screen Stat (Urine) (06/03/20 23:50) Ua Culture If Indicated (06/03/20 23:50) Azithromycin Tablet (Zithromax Tablet) (06/04/20 00:15) Urine Culture (06/03/20 23:25) Ceftriaxone For Iv Use (Rocephin For I (06/04/20 00:30) Medications Given in ED Current Medications Medications Dose Ordered Sig/Yisel Route Start Time Stop Time Status Last Admin Dose Admin Azithromycin 500 mg ONCE ONCE PO 06/04/20 00:15 06/04/20 00:16 DC 06/04/20 00:47 500 MG Ceftriaxone Sodium 1000 mg/ Sterile Water 10 ml @ 200 mls/hr ONCE ONCE IV 06/04/20 00:30 06/04/20 00:32 DC 06/04/20 00:47 200 MLS/HR Iohexol 100 ml ONCE ONCE IV 06/03/20 23:45 06/03/20 23:46 DC 06/03/20 23:46 100 ML Methylprednisolone Sodium Succinate 125 mg ONCE ONCE IVP 06/03/20 22:00 06/03/20 22:01 DC 06/03/20 22:00 125 MG Sodium Chloride 100 ml ONCE ONCE IV 06/03/20 23:45 06/03/20 23:46 DC 06/03/20 23:46 80 ML Vital Signs/I&O 06/03/20 06/03/20 06/04/20 21:05 21:05 00:59 Temp 36.2 36.2 Pulse 76 81 Resp 26 22 B/P (MAP) 143/77 (99) 137/85 (99) Pulse Ox 94 92 O2 Delivery Room Air Room Air Room Air Capillary Refill : Less Than 3 Seconds Blood Pressure Mean: 99 Progress Note : Progress Note PT PLACED IN ISOLATION ROOM AND PPE WORN AT ALL TIMES COVID-19 TESTING PERFORMED GIVEN INHALER WITH SPACER TREATMENT GIVEN SOLU-MEDROL GIVEN COUGH MEDICATION ALL WITH IMPROVEMENT IN SYMPTOMS--NO COUGH AT DISMISSAL AND NO LONGER COMPLAINS OF SHORTNESS OF BREATH AND CHEST DISCOMFORT IS LESS NO DETERIORATION IN PT'S CONDITION NO HYPOXIA OR DYSPNEA DURING ER STAY VITALS STABLE ECG Initial ECG Impression Date: Jun 03, 2020 Initial ECG Impression Time: 21:20 Initial ECG Rate: 71 Initial ECG Rhythm: Normal Sinus Initial ECG Impression: Normal Diagnostic Imaging Comments CXR--PER RADIOLOGIST REPORT AT 2152 FINDINGS: The heart is normal in size. There is mild central vascular prominence which is increased compared to the prior study. There is no definite consolidation or pneumothorax or pleural fluid. There mild chronic appearing increased interstitial markings. IMPRESSION: Mild increased central vascular prominence compared to the prior study. No new consolidation or pleural fluid. CT CHEST ANGIOGRAM--NO P.E. BILATERAL GROUND GLASS OPACITIES, CONCERNING FOR COVID OR OTHER ATYPICAL INFECTION. PER [facility] VIA FAX AT [phone] Reviewed: Reviewed by Me Departure Impression Primary Impression: COVD P.U.I. Additional Impression: Pneumonitis Disposition: HOME, SELF-CARE Condition: Improved Departure-Patient Inst. Referrals: BONY EVANS MD (PCP/Family) Primary Care Physician Patient Instructions: Coronavirus Disease 2019 (COVID-19) (DC), Pneumonitis (DC) Add. Discharge Instructions: HOME, REST USE YOUR INHALERS PRESCRIBED--USE SPACER AT ALL TIMES TYLENOL AND MOTRIN NEEDED FOR PAIN OR FEVER LOTS OF CLEAR LIQUIDS NO SMOKING!!! FOLLOW UP WITH DR. EVANS THIS WEEK FOR FURTHER CARE, CALL IN AM FOR APPOINTMENT RETURN TO ER IF WORSE All discharge instructions reviewed with patient and/or family. Voiced understanding. Scripts Guaifenesin/Dextromethorphan (Mucinex Dm ER 1,200-60 mg Tab) 1 Each Tbmp.12hr 1 EACH PO BID, #20 EA Prov: VERONICA GONZALEZ DO 06/04/20 Benzonatate (TESSALON PERLES) 100 Mg Capsule 100-200 MG PO TID, #30 CAP Prov: VERONICA GONZALEZ DO 06/04/20 Methylprednisolone (Medrol) 4 Mg Tab.ds.pk 4 MG PO UD for 6 Days, #21 PKG PER DOSE PACK INSTRUCTIONS Prov: VERONICA GONZALEZ DO 06/04/20 Azithromycin (Zithromax) 500 Mg Tablet 500 MG PO DAILY for 5 Days, #5 TAB Prov: VERONICA GONZALEZ DO 06/04/20 Cefdinir (Cefdinir) 300 Mg Capsule 300 MG PO BID, #20 CAP Prov: VERONICA GONZALEZ DO 06/04/20 VERONICA GONZALEZ DO Jun 03, 2020 21:54
[2020-06-03] MEDS ORDERED: BENZONATATE 100 MG (TESSALON) CAPSULE PO SCH (22:00)
[2020-06-03] MEDS ORDERED: methylPREDNISolone 125 MG (Solu-MEDROL) VIAL IVP ONE (22:00)
[2020-06-03] MEDS ORDERED: IOHEXOL 350 MG/ML 100 ML (OMNIPAQUE 350) VIAL IV ONE (23:45)
[2020-06-03] MEDS ORDERED: HOLD METFORMIN - RECEIVED CONTRAST 20 ML VIAL IV SCH (23:45)
[2020-06-03] MEDS ORDERED: NS 100 ML (IVPB) BAG IV ONE (23:45)
[2020-06-03 23:57] LABS: BILIRUBIN,URINE NEGATIVE (NEGATIVE); CLARITY,URINE SL CLOUDY; COLOR,URINE YELLOW; GLUCOSE, URINE (UA) NEGATIVE (NEGATIVE); KETONES,URINE NEGATIVE (NEGATIVE); LEUKOCYTE ESTERASE ,URINE TRACE (NEGATIVE); NITRITE,URINE POSITIVE (NEGATIVE); PH,URINE 8.5 (5-9); PROTEIN,URINE NEGATIVE (NEGATIVE)
--- OUTSIDE RECORDS SUMMARY | 2020-06-04 00:02 | XMS REPORT | Continuity of Care Document ---
Author Organization Unknown Address Unknown Phone Unavailable Allergies Active Description Code Type Severity Reaction Onset Reported/Identified Relationship to Patient Clinical Status Yes hydrocodone [id number] Drug Aller gy Mild N/A 06/28/2009 Medications There is no data. Problems Date Dx Coded Attending Type Code Diagnosis Diagnosed By 03/08/2019 BONY EVANS MD, Ot M47.816 SPONDYLOSIS W/O MYELOPATHY OR RADICULOPA 06/14/2019 BONY EVANS MD, Ot M47.816 SPONDYLOSIS W/O MYELOPATHY OR RADICULOPA 06/16/2019 BONY EVANS MD, Ot S89.91XA UNSPECIFIED INJURY OF RIGHT LOWER LEG, I 04/09/2020 BONY EVANS MD, Ot M47.816 SPONDYLOSIS W/O MYELOPATHY OR RADICULOPA 04/09/2020 BONY EVANS MD, Ot S89.91XA UNSPECIFIED INJURY OF RIGHT LOWER LEG, I 04/21/2020 PACHECO HOOVER DO Ot J18 .9 PNEUMONIA, UNSPECIFIED ORGANISM 04/21/2020 PACHECO HOOVER DO Ot J44 .0 CHR OBSTRUCTIVE PULMON DISEASE WITH (ACU 04/21/2020 PACHECO HOOVER DO Ot J44 .1 CHRONIC OBSTRUCTIVE PULMONARY DISEASE W 04/21/2020 PACHECO HOOVER DO Ot R05 COUGH 04/21/2020 PACHECO HOOVER DO Ot Z88 .5 ALLERGY STATUS TO NARCOTIC AGENT STATUS 04/24/2020 MICHEL ALBA APRN Ot M47.812 SPONDYLOSIS W/O MYELOPATHY OR RADICULOPA 04/24/2020 MICHEL ALBA APRN Ot M47.816 SPONDYLOSIS W/O MYELOPATHY OR RADICULOPA 05/15/2020 BONY EVANS MD, Ot M47.816 SPONDYLOSIS W/O MYELOPATHY OR RADICULOPA 05/15/2020 BONY EVANS MD, Ot S89.91XA UNSPECIFIED INJURY OF RIGHT LOWER LEG, I 05/15/2020 MICHEL ALBA APRN Ot M47.812 SPONDYLOSIS W/O MYELOPATHY OR RADICULOPA 05/15/2020 MICHEL ALBA APRN Ot M47.816 SPONDYLOSIS W/O MYELOPATHY OR RADICULOPA 05/21/2020 NATHAN VEGA, BONY Tolbert Ot J44 .9 CHRONIC OBSTRUCTIVE PULMONARY DISEASE, U 05/21/2020 BONY EVANS MD Ot Z20.828 CONTACT W AND EXPOSURE TO OTH VIRAL COMM 06/03/2020 BONY EVANS MD Ot M47.816 SPONDYLOSIS W/O MYELOPATHY OR RADICULOPA 06/03/2020 BONY EVANS MD Ot S89.91XA UNSPECIFIED INJURY OF RIGHT LOWER LEG, I 06/03/2020 MICHEL ALBA APRN Ot M47.812 SPONDYLOSIS W/O MYELOPATHY OR RADICULOPA 06/03/2020 MICHEL ALBA APRN Ot M47.816 SPONDYLOSIS W/O MYELOPATHY OR RADICULOPA 06/03/2020 BONY EVANS MD, Ot J44 .9 CHRONIC OBSTRUCTIVE PULMONARY DISEASE, U 06/03/2020 NATHAN VEGA BONY M Ot Z20.828 CONTACT W AND EXPOSURE TO OTH VIRAL COMM Procedures There is no data. Results Test Result Range TSH w/ FREE T4 - 02/16/19 11:59 TSH 6.68 mIU/L NRG T4, FREE 1.1 ng/dL 0.8-1.8 CMP - 02/16/19 11:59 GLUCOSE 78 mg/dL 65-99 UREA NITROGEN (BUN) 12 mg/dL 7-25 CREATININE 0.77 mg/dL 0.50-1.10 eGFR NON-AFR. CITIZEN [place] 91 mL/min/1.73m2 > OR = 60 eGFR [...] 850-3 900 PLATELET ESTIMATION ADEQUATE ADEQUATE COMMENT(S) [facility] CULTURE, URINE - 02/16/19 11:59 CULTURE, URINE, ROUTINE SEE NOTE [facility] HEPATITIS PROFILE - 06/14/19 12:48 HEPATITIS A IGM NON-REACTIVE NON-REACTI VE HEPATITIS B SURFACE ANTIGEN NON-REACTIVE NON-REACTIVE HEPATITIS B CORE ANTIBODY (IGM) NON-REACTIVE NON-REACTIVE HEPATITIS C ANTIBODY NON-REACTIVE NON-R EACTIVE SIGNAL TO CUT-OFF 0.06 <1.00 CMP - 06/14/19 12:48 GLUCOSE 92 mg/dL 65-99 UREA NITROGEN (BUN) 14 mg/dL 7-25 CREATININE 0.93 mg/dL 0.50-1.10 eGFR NON-AFR. CITIZEN OF [place] 72 mL/min/1.73m2 > OR = 60 eGFR [...] TMA NOT DETECTED NOT DETECTED COMMENT NRG Complete blood count (CBC) with automate d white blood cell (WBC) differential - 05/15/20 10:10 Blood leukocytes automated count (number/volume) 8.4 10*3/uL 4.3-11.0 Blood erythrocytes automated count (number/volume) 4.73 10*6/uL 4.35-5.85 Venous blood hemoglobin measurement (mass/volume) 14.6 g/dL 11.5-16.0 Blood hematocrit (volume fraction) 45 % 35-52 Automated erythrocyte mean corpuscular volume 94 [ foz_us] 80-99 Automated erythrocyte mean corpuscular h emoglobin (mass per erythrocyte) 31 pg 25-34 Automated erythrocyte mean corpuscular h emoglobin concentration measurement (mass/volume) 33 g/dL 32-36 Automated erythrocyte distribution width ratio 13. 3 % 10.0- 14.5 Automated blood platelet count (count/volume) 251 10*3/uL 130-400 Automated blood platelet mean volume measurement 10.0 [foz_us] 7.4-10.4 Automated blood neutrophils/100 leukocytes 66 % 42-75 Automated blood lymphocytes/100 leukocytes 22 % 12-44 Blood monocytes/100 leukocytes 6 % 0-12 Automated blood eosinophils/100 leukocytes 5 % 0-10 Automated blood basophils/100 leukocytes 1 % 0-10 Blood neutrophils automated count (number/volume) 5.5 10*3 1.8-7.8 Blood lymphocytes automated count (number/volume) 1.9 10*3 1.0-4.0 Blood monocytes automated count (number/volume) 0. 5 10*3 0.0-1.0 Automated eosinophil count 0.4 10*3/uL 0 .0-0.3 Automated blood basophil count (count/volume) 0.0 10*3/uL 0.0-0.1 Comprehensive metabolic panel - 05/15/20 10:10 Serum or plasma sodium measurement (moles/volume) 139 mmol/L 135-145 Serum or plasma potassium measurement (moles/volume) 4.5 mmol/L 3.6-5.0 Serum or plasma chloride measurement (moles/volume) 103 mmol/L 98-107 Carbon dioxide 26 mmol/L 21-32 Serum or plasma anion gap determination (moles/volume) 10 mmol/L 5-14 Serum or plasma urea nitrogen measurement (mass/volume ) 10 mg/dL 7-18 Serum or plasma creatinine measurement (mass/volume) 0.71 mg/dL 0.60-1.30 Serum or plasma urea nitrogen/creatinine mass ratio 14 NRG Serum or plasma creatinine measurement w ith calculation of estimated glomerular filtration rate > NRG Serum or plasma glucose measurement (mass/volume) 97 mg/dL 70-105 Serum or plasma calcium measurement (mass/volume) 9.1 mg/dL 8.5-10.1 Serum or plasma total bilirubin measurement (mass/volu me) 0.3 mg/dL 0.1-1.0 Serum or plasma alkaline phosphatase edgar surement (enzymatic activity/volume) 92 U/L 40-136 Serum or plasma aspartate aminotransfera se measurement (enzymatic activity/volume) 19 U/L 5-34 Serum or plasma alanine aminotransferase measurement (enzymatic activity/volume) 20 U/L 0-55 Serum or plasma protein measurement (mass/volume) 7.1 g/dL 6.4-8.2 Serum or plasma albumin measurement (mass/volume) 4.0 g/dL 3.2-4.5 CALCIUM CORRECTED 9.1 mg/dL 8.5-10.1 Coronavirus SARS-CoV-2 SO 2018 - 0 10:10 Coronavirus Ab [Units/volume] in Serum Negative Negative Complete blood count (CBC) with automate d white blood cell (WBC) differential - 06/03/20 21:15 Blood leukocytes automated count (number/volume) 7.6 10*3/uL 4.3-11.0 Blood erythrocytes automated count (number/volume) 4.50 10*6/uL 4.35-5.85 Venous blood hemoglobin measurement (mass/volume) 14.0 g/dL 11.5-16.0 Blood hematocrit (volume fraction) 42 % 35-52 Automated erythrocyte mean corpuscular volume 94 [ foz_us] 80-99 Automated erythrocyte mean corpuscular h emoglobin (mass per erythrocyte) 31 pg 25-34 Automated erythrocyte mean corpuscular h emoglobin concentration measurement (mass/volume) 33 g/dL 32-36 Automated erythrocyte distribution width ratio 13. 9 % 10.0- 14.5 Automated blood platelet count (count/volume) 271 10*3/uL 130-400 Automated blood platelet mean volume measurement 10.7 [foz_us] 7.4-10.4 Automated blood neutrophils/100 leukocytes 56 % 42-75 Automated blood lymphocytes/100 leukocytes 31 % 12-44 Blood monocytes/100 leukocytes 7 % 0-12 Automated blood eosinophils/100 leukocytes 6 % 0-10 Automated blood basophils/100 leukocytes 0 % 0-10 Blood neutrophils automated count (number/volume) 4.2 10*3 1.8-7.8 Blood lymphocytes automated count (number/volume) 2.3 10*3 1.0-4.0 Blood monocytes automated count (number/volume) 0. 5 10*3 0.0-1.0 Automated eosinophil count 0.5 10*3/uL 0 .0-0.3 Automated blood basophil count (count/volume) 0.0 10*3/uL 0.0-0.1 Blood lactic acid measurement (moles/vol ume) - 06/03/20 21:15 Blood lactic acid measurement (moles/volume) 1.09 mmol/L 0.50-2.00 PT panel in platelet poor plasma by coag ulation assay - 06/03/20 21:15 Prothrombin time (PT) in platelet poor plasma by coagu lation assay 12.4 s 12.2-14.7 INR in platelet poor plasma or blood by coagulation as say 0.9 0.8-1.4 Activated partial thromboplastin time (a PTT) in platelet poor plasma bycoagulation assay - 06/03/20 21:15 Activated partial thromboplastin time (a PTT) in platelet poor plasma bycoagulation assay 26 s 24-35 Fibrin D-dimer FEU measurement in platel et poor plasma (mass/volume) - 06/03/20 21:15 Fibrin D-dimer FEU measurement in platelet poor plasma (mass/volume) 1.32 ug/mL 0.00-0.49 Comprehensive metabolic panel - 06/03/20 21:15 Serum or plasma sodium measurement (moles/volume) 139 mmol/L 135-145 Serum or plasma potassium measurement (moles/volume) 4.5 mmol/L 3.6-5.0 Serum or plasma chloride measurement (moles/volume) 102 mmol/L 98-107 Carbon dioxide 26 mmol/L 21-32 Serum or plasma anion gap determination (moles/volume) 11 mmol/L 5-14 Serum or plasma urea nitrogen measurement (mass/volume ) 8 mg/dL 7-18 Serum or plasma creatinine measurement (mass/volume) 0.79 mg/dL 0.60-1.30 Serum or plasma urea nitrogen/creatinine mass ratio 10 NRG Serum or plasma creatinine measurement w ith calculation of estimated glomerular filtration rate > NRG Serum or plasma glucose measurement (mass/volume) 106 mg/dL 70-105 Serum or plasma calcium measurement (mass/volume) 8.9 mg/dL 8.5-10.1 Serum or plasma total bilirubin measurement (mass/volu me) 0.4 mg/dL 0.1-1.0 Serum or plasma alkaline phosphatase edgar surement (enzymatic activity/volume) 66 U/L 40-136 Serum or plasma aspartate aminotransfera se measurement (enzymatic activity/volume) 19 U/L 5-34 Serum or plasma alanine aminotransferase measurement (enzymatic activity/volume) 19 U/L 0-55 Serum or plasma protein measurement (mass/volume) 6.8 g/dL 6.4-8.2 Serum or plasma albumin measurement (mass/volume) 3.7 g/dL 3.2-4.5 CALCIUM CORRECTED 9.1 mg/dL 8.5-10.1 Magnesium - 06/03/20 21:15 Magnesium 2.1 mg/dL 1.6-2.4 Serum ragweed IgE antibody assay - 06/03 21:15 Serum ragweed IgE antibody assay 293 U/L 125-220 PROCALCITONIN (PCT) - 06/03/20 21:15 PROCALCITONIN (PCT) 0.02 ng/mL <0.10 Erythrocyte sedimentation rate by shirley gren method - 06/03/20 21:15 Erythrocyte sedimentation rate by westergren method 14 mm 0- 30 Serum or plasma lithium measurement (mol es/volume) - 06/03/20 21:15 BNP PT 20.1 pg/mL <100.0 Serum or plasma C reactive protein measu rement (mass/volume) - 06/03/20 21:15 Serum or plasma C reactive protein measurement (mass/v olume) 2.63 mg/dL 0.00-0.50 Serum or plasma troponin i.cardiac measu rement (mass/volume) - 06/03/20 21:15 Serum or plasma troponin i.cardiac measurement (mass/v olume) < ng/mL <0.028 Encounters ACCT No. Visit Date/Time Discharge Status Pt. Type Provider Facility Loc./Unit Complaint [id number] 04/25/2020 14:30:00 04/25/2020 23:59:5 9 CLS Outpatient MICHEL ALBA [facility] [id number] 04/09/2020 15:40:00 Document Registration [id number] 06/14/2019 11:40:00 Document Registration [id number] 02/16/2019 11:30:00 Document Registration [id number] 10/07/2013 12:35:00 23:59:59 CLS Outpatient [id number] 05/15/2020 09:46:00 23:59:59 CLS Outpatient BNOY EVANS MD [facility] LAB FS COVID SWAB CMP CBC+ DIFF J44.9 [id number] 04/21/2020 12:55:00 13:45:00 DIS Emergency PACHECO HOOVER DO [facility] ER FS COUGH [id number] 04/09/2020 17:11:00 23:59:59 CLS Outpatient MICHEL ALBA APRN [facility] RAD FS M54.5 M54.2 [id number] 06/14/2019 12:39:00 23:59:59 CLS Outpatient NATHAN VEGA, BONY Tolbert [facility] RAD FS S89.91XA [id number] 02/23/2019 11:50:00 23:59:59 CLS Outpatient NATHAN VEGA, BONY Tolbert [facility] RAD FS G89.29 M54.5 [id number] 06/03/2020 20:21:[address] Emergency VERONICA GONZALEZ DO [facility] ER SOB/COUGH
[2020-06-04 00:09] LABS: BACTERIA,URINE LARGE /HPF; SQUAMOUS EPITHELIAL CELL,UR 0-2 /HPF
[2020-06-04 00:12] LABS: AMPHETAMINE SCREEN, URINE NEGATIVE (NEGATIVE); BARBITURATE SCREEN URINE NEGATIVE (NEGATIVE); BENZODIAZEPINES SCREEN URINE NEGATIVE (NEGATIVE); CANNABINOID SCREEN, URINE POSITIVE (NEGATIVE); COCAINE SCREEN URINE NEGATIVE (NEGATIVE); METHADONE STAT NEGATIVE (NEGATIVE); METHAMPHETAMINE SCREEN URINE S NEGATIVE (NEGATIVE); OPIATE SCREEN URINE NEGATIVE (NEGATIVE); OXYCODONE STAT NEGATIVE (NEGATIVE); PROPOXYPHENE STAT NEGATIVE (NEGATIVE); TRICYCLIC ANTIDEPRESSANTS SCRE NEGATIVE (NEGATIVE)
[2020-06-04] MEDS ORDERED: AZITHROMYCIN 250 MG TAB (ZITHROMAX) PO ONE (00:15)
[2020-06-04] MEDS ORDERED: GUAI1TBM19 PO (00:23)
[2020-06-04] MEDS ORDERED: METH4TAB PO (00:23)
[2020-06-04] MEDS ORDERED: CEFD300C3 PO (00:23)
[2020-06-04] MEDS ORDERED: AZIT500T PO (00:23)
[2020-06-04] MEDS ORDERED: BENZ100C18 PO (00:23)
[2020-06-04] MEDS ORDERED: cefTRIAXone FOR IV USE 1,000 MG in WATER (STERILE) FOR INJECTION 10 ML IV ONE (00:30)
--- NOTE | 2020-06-04 00:45 | NUR ---
PT ASKED TO END CELL PHONE CALL SO IV AND PO MEDICATION COULD BE ADMINISTERED WELL DC INSTRUCTIONS AND INFORMATION GIVEN. PT STATES TO PERSON ON PHONE "UGH THEY'RE MAKING ME GET OFF THE PHONE AGAIN". DISCUSSED WITH PT THE NEED FOR ATTENTION WITHOUT DISTRACTIONS SUCH CELL PHONES, ETC STAFF IS IN FULL PPE AND SOMETIMES IT CAN BE DIFFICULT TO HEAR WHAT IS COMMUNICATED.
[2020-06-04 00:59] VITALS: BP 137/85
--- NOTE | 2020-06-04 07:40 | Diagnostic Imaging Report ---
PROCEDURE: CT angiography of the chest with contrast. TECHNIQUE: Multiple contiguous axial images were obtained through the chest after uneventful bolus administration of intravenous contrast. 3D reconstructed CTA MIP acquisitions were also performed. Auto Exposure Controls were utilized during the CT exam to meet ALARA standards for radiation dose reduction. INDICATION: Shortness of air, cough and congestion. CORRELATION: None FINDINGS: There is no pulmonary artery filling defect to suggest pulmonary embolism. Heart size is mildly enlarged but without disproportionate right heart strain. No pericardial effusion. Thoracic aortic contour unremarkable. 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 No pathologic enlarged mediastinal lymph nodes. There is some circumferential wall thickening of the lower half of the esophagus. There are scattered faint groundglass opacities within both lung renee along with mildly prominent interstitial markings. No luna lobar consolidation. No pleural effusion. No pneumothorax. The visualized portions of the upper abdomen are unremarkable. The visualized osseous structures demonstrate no acute findings. IMPRESSION: 1. No CT evidence for pulmonary embolism. 2. Bilateral interstitial and groundglass opacities are present. While the findings nonspecific can be associated with clinically concerned Covid. Other atypical infection and/or edema are also in the differential. Report was faxed to Manuel/RN Infection Control by oksana at 7:39AM. Dictated by: Dictated on workstation # [id number]
== END 2020-06-04 00:59 | disposition home or self-care (01) ==
LOC: EDUNIT# 20:19 → ER 20:21
DX: J18.9 Pneumonia, unspecified organism (principal); J44.9 Chronic obstructive pulmonary disease, unspecified; I10 Essential (primary) hypertension; F41.9 Anxiety disorder, unspecified; F31.9 Bipolar disorder, unspecified; E11.9 Type 2 diabetes mellitus without complications; Z88.5 Allergy status to narcotic agent; F17.210 Nicotine dependence, cigarettes, uncomplicated; Z79.52 Long term (current) use of systemic steroids; Z20.828 Contact with and (suspected) exposure to other viral communicable diseases
CPT/HCPCS: 71045; 71275; 80053; 80306; 81000; 83605; 83615; 83735; 83880; 84145; 84484; 85025; 85379; 85610; 85652; 85730; 86141; 87040; 87077; 87088; 87186; 93005; 93041; 96374; 96375; 99284; U0002; 36415; 87635

== ENCOUNTER 2021-06-27 12:18 | Emergency (ER) | payer MEDICAID ==
[~2021-06-27] VITALS: Ht 160 cm; Wt 90.2 kg
[~2021-06-27 12:18] MED LIST changes: +AZIT500T PO; +CEFD300C3 PO; +GUAI1TBM19 PO; +METH4TAB PO
--- OUTSIDE RECORDS SUMMARY | 2021-06-27 12:25 | XMS REPORT | Clinical Summary ---
Author Author [facility] Organization [facility] Address Unknown Phone Unavailable Care Team Providers Care Mold Stamper And Repairer Name Role Phone Priti Barkley MD PCP Ahsan Pompa RN 2 Unavailable Blaine Perera MD Unavailable Lacey Velez APRN Unavailable Estella Benavides Unavailable Unavailable Christa Terrazas AUTOMATED LOGISTICS SPECIALIST-MANUFACTURING LAB TECHNICIAN Unavailable Estella Villafuerte Unavailable Unavailable Olivia Modi Unavailable Unavailable Neva Morocho Unavailable Unavailable Source Comments Some departments are not documenting in the electronic medical record. If you d o not see the information that you expected, contact Release of Information in [facility] Information Management department at [phone] for further assistan ce in locating additional records.[facility] Allergies Comments Active Allergy Reactions Severity Noted Date "Feet swelling" and "ear ringing" per patient Hydrocodone SEE COMMENTS Low 08/17/2015 Medications End Date Status Medication Sig Dispensed Refills Start Date Active loratadine (CLARITIN) 10 Take 10 mg by 0 mg tablet mouth daily as needed (Allergy). Active citalopram (CELEXA) 10 mg Take 30 mg by 0 tablet mouth daily. Active entecavir (BARACLUDE) 0.5 Take 1 Tab by 30 Tab 5 09/25/201 mg tabletIndications: mouth daily. 6 chronic hepatitis B Indications: CHRONIC HEPATITIS B Active lactulose 10 gram/15 mL Take 20 g by 0 oral solution mouth three times daily. Titrate to 2-3 BM per day. Active naproxen (NAPROSYN) 500 Take 500 mg 0 mg tablet by mouth twice daily with meals. Take with food. Active nortriptyline (PAMELOR) Take 25 mg by 0 25 mg capsule mouth at bedtime daily. Active traMADol (ULTRAM) 50 mg Take 50 mg by 0 tablet mouth every 6 hours as needed for Pain. Active traZODone (DESYREL) 100 Take 100 mg 0 mg tablet by mouth at bedtime daily. Active rizatriptan(+) Dissolve 10 0 (MAXALT-STOCKING INSPECTOR) 5 mg TbDL mg by mouth rapid dissolve tablet every 2 hours. No more than 2 per day. Active cyclobenzaprine Take 10 mg by 0 (FLEXERIL) 10 mg tablet mouth three times daily as needed for Muscle Cramps. Active polyethylene glycol 3350 Take 1 Packet 12 Each 3 (MIRALAX) 17 g by mouth 7 packetIndications: daily. 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 Acute hepatitis B 08/17/2015 Liver injury 08/17/2015 Social History Date Tobacco Use Types Packs/Day Years Used Quit: 08/16/2015 Former Smoker Cigarettes Sex Assigned at Date Recorded Not on file Last Filed Vital Signs Reading Time Taken Comments Vital Sign 117/76 10/15/2016 10:15 AM [employer] Blood Pressure 77 10/15/2016 10:15 AM [employer] Pulse 36.4 C (97.5 F) 10/15/2016 10:15 AM [employer] Temperature 12 10/15/2016 10:15 AM [employer] Respiratory Rate 100% 10/15/2016 10:15 AM [employer] Oxygen Saturation - - Inhaled Oxygen Concentration 89.4 kg (197 lb) 10/15/2016 10:15 AM [employer] Weight 160 cm (5' 3") 10/15/2016 10:15 AM [employer] Height 34.9 10/15/2016 10:15 AM [employer] Body Mass Index Plan of Treatment Health Maintenance Due Date Last Done Comments DTAP/TDAP VACCINES (1 - 1987 Tdap) PHYSICAL (COMPREHENSIVE) 1987 EXAM CERVICAL CANCER SCREENING 1990 BREAST CANCER SCREENING 2009 COLORECTAL CANCER 2019 SCREENING SHINGLES RECOMBINANT 2019 VACCINE (1 of 2) INFLUENZA VACCINE 08/01/2021 HEPATITIS C SCREENING Completed 08/16/2015 HIV SCREENING Completed 08/19/2015 Results Not on filefrom Last 3 Months Insurance Type Payer Benefit Subscriber ID Effective Phone Address Plan / Dates Group Medicaid [facility] [place] [place] [facility] [id number] 2010- STATE Present HEALTH [phone] Advance Directives Patient Admission Specialist Explanation Type Date Recorded Advance 08/16/2015 7:51 PM Directive/DPOA Date Inactivated Comments Code Status Date Activated 08/22/2015 7:09 PM Full Code 08/17/2015 1:33 AM Provider has discussed Code Status Yes w/Patient or Family?
--- NOTE | 2021-06-27 12:40 | ED General ---
General Stated Complaint: SYNCOPE; FALL Source of Information: Patient, EMS History of Present Illness Date Seen by Provider: Jun 27, 2021 Time Seen by Provider: 12:18 Initial Comments 50-year-old female presenting with complaint of walking outside when she felt like everything went black and she fell to her left knee. She passed out falling and hurting her low back and neck and shoulder. All of her pain is on the left side of her body. She has no nausea or vomiting. She denies having chest pain prior to the incident. She thinks it may be more than 5 years since her last tetanus shot. She denies having this happen before. She complains of severe pain to left side of body and neck. She denies n/v/d/, dysuria. Associated Systoms: No Chest Pain, No Diaphoresis, No Fever/Chills, No Loss of Appetite, No Nausea/Vomiting, No Seizure; Shortness of Air (chronic from COPD), Syncope Allergies and Home Medications Allergies Coded Allergies: hydrocodone (Unverified Allergy, Mild, 06/28/09) Home Medications Albuterol Sulfate 1 Puff Puff, 2 PUFF IH Q4H 1 PUFF = 90 MCG Prescribed by: PACHECO HOOVER on 04/21/201338 Azelastine HCl 137 Mcg/0.137 Ml [place].pump, 137 MCG NS BID Prescribed by: PACHECO HOOVER on 04/21/201338 Azithromycin 250 Mg Tablet, 250 MG PO UD TAKE 2 TABLETS ON DAY ONE THEN TAKE 1 TABLET DAILY FOR FOUR MORE DAYS Prescribed by: PACHECO HOOVER on 04/21/201338 Azithromycin 500 Mg Tablet, 500 MG PO DAILY Prescribed by: VERONICA GONZALEZ on 06/04/2022 Azithromycin 250 Mg Tablet, 250 MG PO DAILY Prescribed by: CAROLIN RAMIREZ on 06/27/21 1653 Benzonatate 100 Mg Capsule, 100 MG PO TID PRN for COUGH Prescribed by: PACHECO HOOVER on 04/21/20 133 Benzonatate 100 Mg Capsule, 100-200 MG PO TID Prescribed by: VERONICA GONZALEZ on 06/04/2022 Cefdinir 300 Mg Capsule, 300 MG PO BID Prescribed by: VERONICA GONZALEZ on 06/04/2022 Ciprofloxacin 500 Mg Tablet, 1 TAB PO BID Prescribed by: BRAD REDMOND on 04/17/10 174 Citalopram Hydrobromide 10 Mg Tablet, DAILY, (Reported) Guaifenesin/Dextromethorphan 1 Each Tbmp.12hr, 1 EACH PO BID Prescribed by: VERONICA GONZALEZ on 06/04/2022 Methylprednisolone 4 Mg Tab.ds.pk, 4 MG PO UD PER DOSE PACK INSTRUCTIONS Prescribed by: VERONICA GONZALEZ on 06/04/2022 Prednisone 20 Mg Tab, 60 MG PO DAILY Prescribed by: PACHECO HOOVER on 04/21/20 1339 Prednisone 20 Mg Tab, 40 MG PO DAILY Prescribed by: CAROLIN RAMIREZ on 06/27/211652 Rizatriptan Benzoate 10 Mg Tablet, PRN, (Reported) Tramadol HCl 50 Mg Tablet, 50 MG PO Q6H PRN for PAIN Prescribed by: CAROLIN RAMIREZ on 06/27/211652 Patient Home Medication List Home Medication List Reviewed: Yes Review of Systems Review of Systems Constitutional: see HPI EENTM: no symptoms reported Respiratory: no symptoms reported Cardiovascular: no symptoms reported Gastrointestinal: no symptoms reported Genitourinary: no symptoms reported Musculoskeletal: back pain (lumbar spine), joint pain (left knee, hip, shoulder pain) Skin: see HPI, other (abrasion and contusion left knee more than right knee) Psychiatric/Neurological: Anxiety; Denies Numbness, Denies Paresthesia Past Fdrjlaw-Yjcrsq-Rqscze Hx Seasonal Allergies Seasonal Allergies: No Past Medical History Surgeries: Yes Section, Eye Surgery, Hysterectomy Respiratory: Yes COPD, Emphysema Cardiac: Yes Hypertension Neurological: Yes Seizure Disorder 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 Genitourinary: No Gastrointestinal: Yes (HEPATITIS B & LIVER FAILURE--STATES SHE WAS AT [employer]/CANNOT GIVE DETAILS OF [place]) Hepatitis Musculoskeletal: Yes (CHRONIC GENERALIZED PAIN) Degenerate Disk Disease, Chronic Back Pain Endocrine: Yes (CLAIMS "GESTATIONAL DIABETES FOR 12 YEARS-IT NEVER WENT AWAY"- NO MEDS) Diabetes, Non-Insulin dep HEENT: No Cancer: No Psychosocial: Yes Anxiety, Bipolar, Depression Integumentary: No Blood Disorders: No Physical Exam Vital Signs Vital Signs - First Documented 06/27/21 12:25 Temp 36.3 Pulse 77 Resp 18 B/P (MAP) 143/91 (108) Pulse Ox 99 O2 Delivery Room Air Capillary Refill : Height, Weight, BMI Height: '" Weight: lbs. oz. kg; 35.00 BMI Method:Stated General Appearance: Anxious, Mild Distress, Obese HEENT: PERRL/EOMI, TMs Normal, Normal ENT Inspection, Pharynx Normal (other than edentulous) Neck: Tender Lateral, Tender Midline, Other (wearing cervical collar) Respiratory: Chest Non Tender, Lungs Clear, No Accessory Muscle Use, Decreased Breath Sounds Cardiovascular: Regular Rate, Rhythm, Normal Peripheral Pulses Gastrointestinal: Normal Bowel Sounds, No Pulsatile Mass, Non Tender, Soft Rectal: Deferred Back: Vertebral Tenderness (lumbar spine) Extremity: Normal Capillary Refill, No Pedal Edema, Other (pain to left shoulder with palpation and movement. left knee with abrasion and contusion. 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 Norm as Tested Skin: Warm/Dry, Other (abrasions to knees left more than right) Progress/Results/Core Measures Suspected Sepsis SIRS Temperature: Pulse: Respiratory Rate: Laboratory Tests 06/27/21 12:35: White Blood Count 5.9 Blood Pressure / Mean: Laboratory Tests 06/27/21 12:35: Creatinine 0.79, INR Comment 0.9, Platelet Count 239, Total Bilirubin 0.3 Results/Orders Lab Results Laboratory Tests Test 06/27/21 12:35 Range/Units White Blood Count 5.9 4.3-11.0 10^3/uL Red Blood Count 4.42 3.80-5.11 10^6/uL Hemoglobin 13.9 11.5-16.0 g/dL Hematocrit 42 35-52 % Mean Corpuscular Volume 94 80-99 fL Mean Corpuscular Hemoglobin 31 25-34 pg Mean Corpuscular Hemoglobin Concent 33 32-36 g/dL Red Cell Distribution Width 12.8 10.0-14.5 % Platelet Count 239 130-400 10^3/uL Mean Platelet Volume 10.1 9.0-12.2 fL Immature Granulocyte % (Auto) 0 % Neutrophils (%) (Auto) 48 42-75 % Lymphocytes (%) (Auto) 41 12-44 % Monocytes (%) (Auto) 7 0-12 % Eosinophils (%) (Auto) 4 0-10 % Basophils (%) (Auto) 1 0-10 % Neutrophils # (Auto) 2.8 1.8-7.8 X 10^3 Lymphocytes # (Auto) 2.4 1.0-4.0 X 10^3 Monocytes # (Auto) 0.4 0.0-1.0 X 10^3 Eosinophils # (Auto) 0.2 0.0-0.3 10^3/uL Basophils # (Auto) 0.0 0.0-0.1 10^3/uL Immature Granulocyte # (Auto) 0.0 0.0-0.1 10^3/uL Prothrombin Time 12.4 12.2-14.7 SEC INR Comment 0.9 0.8-1.4 Activated Partial Thromboplast Time 25 24-35 SEC Sodium Level 138 135-145 MMOL/L Potassium Level 4.2 3.6-5.0 MMOL/L Chloride Level 102 98-107 MMOL/L Carbon Dioxide Level 29 21-32 MMOL/L Anion Gap 7 5-14 MMOL/L Blood Urea Nitrogen 10 7-18 MG/DL Creatinine 0.79 0.60-1.30 MG/DL Estimat Glomerular Filtration Rate 77 BUN/Creatinine Ratio 13 Glucose Level 91 70-105 MG/DL Calcium Level 9.3 8.5-10.1 MG/DL Corrected Calcium 9.2 8.5-10.1 MG/DL Magnesium Level 2.0 1.6-2.4 MG/DL Total Bilirubin 0.3 0.1-1.0 MG/DL Aspartate Amino Transf (AST/SGOT) 31 5-34 U/L Alanine Aminotransferase (ALT/SGPT) 31 0-55 U/L Alkaline Phosphatase 82 40-136 U/L Troponin I < 0.30 <0.30 NG/ML Pro-B-Type Natriuretic Peptide 28.8 <75.0 PG/ML Total Protein 7.1 6.4-8.2 GM/DL Albumin 4.1 3.2-4.5 GM/DL My Orders Orders - CAROLIN RAMIREZ MD Cbc With Automated Diff (06/27/21 12:30) Magnesium (06/27/21 12:30) Ekg Tracing (06/27/21 12:30) Comprehensive Metabolic Panel (06/27/21 12:30) Protime With Inr (06/27/21 12:30) Partial Thromboplastin Time (06/27/21 12:30) O2 (06/27/21 12:30) Monitor-Rhythm Ecg Trace Only (06/27/21 12:30) Ed Iv/Invasive Line Start (06/27/21 12:30) Knee 3 View Left (06/27/21 12:30) Ct Head/Cervical Spine Wo (06/27/21 12:30) Ct Chest/Abdomen/Pelvis W (06/27/21 12:30) Shoulder 3 View Left (06/27/21 12:30) Probnp Fs (06/27/21 12:30) Troponin I Fs (06/27/21 12:30) Ketorolac Injection (Toradol Injection) (06/27/21 12:42) Orphenadrine Inj (Ed Only) (Norflex Inje (06/27/21 12:42) Ns Iv 1000 Ml (Sodium Chloride 0.9%) (06/27/21 12:42) Lactated Ringers (Lr 1000 Ml Iv Solution (06/27/21 13:06) Iohexol Injection (Omnipaque 350 Mg/Ml 1 (06/27/21 13:45) Received Contrast (Hold Metformin- Contr (06/27/21 13:45) Sodium Chloride Flush (Catheter Flush Sy (06/27/21 13:45) Ns (Ivpb) (Sodium Chloride 0.9% Ivpb Bag (06/27/21 13:45) Azithromycin Tablet (Zithromax Tablet) (06/27/21 16:48) Methylprednisolone Sod Succ (Solu-Medrol (06/27/21 16:48) Medications Given in ED Current Medications Medications Dose Ordered Sig/Yisel Route Start Time Stop Time Status Last Admin Dose Admin Iohexol 100 ml ONCE ONCE IV 06/27/21 13:45 06/27/21 13:46 DC 06/27/21 14:29 100 ML Sodium Chloride 10 ml NEEDED PRN IV 06/27/21 13:45 06/27/21 17:00 DC 06/27/21 14:30 10 ML Sodium Chloride 100 ml ONCE ONCE IV 06/27/21 13:45 06/27/21 13:46 DC 06/27/21 14:30 100 ML Vital Signs/I&O 06/27/21 12:25 Temp 36.3 Pulse 77 Resp 18 B/P (MAP) 143/91 (108) Pulse Ox 99 O2 Delivery Room Air Capillary Refill : Progress Note #1: Progress Note Obtain labs as well as electrocardiogram and urinalysis. Ordered CT scan of head, neck, chest abdomen pelvis. X-rays of the left shoulder and left knee. We will try a dose of Toradol for pain while waiting on test results. Progress Note #2: Progress Note Labs are all stable without acute significant normality. Cardiac enzymes are negative. X-ray of the left shoulder and left knee did not show any acute fracture or dislocation. Progress Note #3: Progress Note CT head and cervical spine are clear of fracture or acute process. Will remove cervical collar and await CT chest/abd/pelvis. Progress Note #4: Progress Note CT chest/abdomen/pelvis do not show acute fracture or internal injury but patchy ground glass appearance in lungs for possible atypical infection vs pulmonary edema. Patient with 100% O2 sat on room air while resting in bed. Treat for possible atypical infection. Counseled on follow-up and return precautions ECG Initial ECG Impression Date: Jun 27, 2021 Initial ECG Impression Time: 12:26 Initial ECG Rate: 71 Initial ECG Rhythm: Normal Sinus Initial ECG Comparisson: No Previous ECG Available Comment Normal sinus rhythm with a heart rate of 71 bpm. HI interval 132 ms. QT interval 385 ms with a QTc interval 419 ms. There is no acute ST elevation. There is no prior tracing available for comparison. Diagnostic Imaging Diagonstic Imaging: Xray Plain Films/CT/US/NM/MRI: knee Comments [facility] [place], [place] NAME: MICHAEL LINDSEY [facility] REC#: [id number] PT STATUS: REG ER : 1970 PHYSICIAN: CAROLIN RAMIREZ MD ADMIT DATE: 06/27/21/ER FS Signed Date of Exam:06/27/21 KNEE 3 VIEW LEFT INDICATION: Fall. TIME OF EXAM: 2:24 PM Three views of the left knee were obtained. Alignment is normal. Joint spaces are well maintained. Articular surfaces are smooth. No fracture, dislocation or effusion is seen. IMPRESSION: No acute bony abnormality is detected. Dictated by: Dictated on workstation # [id number] Dict: 06/27/21 1445 Trans: 06/27/21 1536 [facility] [id number] Interpreted by: BRANDY CAVANAUGH MD Electronically signed by: BRANDY CAVANAUGH MD 06/27/21 1536 Reviewed: Reviewed by Nm Diagonstic Imaging: Xray Plain Films/CT/US/NM/MRI: other (shoulder) Comments [facility] [place] [place] NAME: MICHAEL LINDSEY [facility] REC#: [id number] PT STATUS: REG ER : 1970 PHYSICIAN: CAROLIN RAMIREZ MD ADMIT DATE: 06/27/21/ER FS Signed Date of Exam:06/27/21 SHOULDER 3 VIEW LEFT INDICATION: Fall. TIME OF EXAM: 2:28 PM Three views of the left shoulder were obtained. Glenohumeral and acromioclavicular alignment are normal. Acromiohumeral space is normal. No fracture or dislocation is seen. IMPRESSION: No acute bony abnormality is detected. Dictated by: Dictated on workstation # [id number] Dict: 06/27/21 1445 Trans: 06/27/21 1536 [facility] [id number] Interpreted by: BRANDY CAVANAUGH MD Electronically signed by: BRANDY CAVANAUGH MD 06/27/21 1536 Reviewed: Reviewed by Nm Diagonstic Imaging: CT Plain Films/CT/US/NM/MRI: c-spine, head Comments NAME: MICHAEL LINDSEY [facility] REC#: [id number] PT STATUS: REG ER : 1970 PHYSICIAN: CAROLIN RAMIREZ MD ADMIT DATE: 06/27/21/ER FS Draft Date of Exam:06/27/21 CT HEAD/CERVICAL SPINE WO PROCEDURE: CT head and CT cervical spine without contrast. TECHNIQUE: Multiple contiguous axial images were obtained through the brain and cervical spine without the use of intravenous contrast. Sagittal and coronal reformations through the cervical spine were then performed. Auto Exposure Controls were utilized during the CT exam to meet ALARA standards for radiation dose reduction. INDICATION: Syncopal episode. Fall. Head and neck pain. Scalp contusion. COMPARISON: None. FINDINGS: CT head: No large acute territorial ischemia, mass, or hemorrhage. No midline shift or mass effect. The ventricles, cortical sulci, and basilar cisterns are patent and unremarkable. The calvarium is intact. The visualized paranasal sinuses are clear. CT cervical spine: No acute fracture or dislocation is seen in the cervical spine. No focal osseous lesions. Vertebral body heights are well-maintained. The craniocervical junction is well-maintained. Lyxc-iu-xeksvnrq degenerative changes are seen in the cervical spine with disc osteophyte complexes and uncovertebral arthropathy, greatest at the C6-C7 level. Soft tissues of the neck are unremarkable. The included lung apices are clear. IMPRESSION: 1. No hemorrhage or focal intra-axial mass. No CT evidence of large acute territorial ischemia. 2. No acute fracture or dislocation in the cervical spine. Dictated on workstation # [id number] Dict: 06/27/21 1605 Trans: 06/27/21 1609 AS6 [id number] Interpreted by: DC KIM DO Electronically signed by: Reviewed: Reviewed by Me Diagonstic Imaging: CT Plain Films/CT/US/NM/MRI: chest, abdomen, pelvis Comments NAME: MICHAEL LINDSEY [facility] REC#: [id number] PT STATUS: REG ER : 1970 PHYSICIAN: CAROLIN RAMIREZ MD ADMIT DATE: 06/27/21/ER FS Draft Date of Exam:06/27/21 CT CHEST/ABDOMEN/PELVIS W EXAMINATION: CT chest, abdomen and pelvis with intravenous contrast. TECHNIQUE: Multiple contiguous axial images were obtained through the chest, abdomen and pelvis after the uneventful administration of intravenous contrast. All CT scans use one or more of the following dose optimizing techniques: automated exposure control, MA and/or KvP adjustment based on patient size and exam type or iterative reconstruction. HISTORY: syncope, left shoulder/chest pain, L spine pain, L hip pain after fall COMPARISON: 06/03/2020. FINDINGS: Thyroid: The visualized thyroid gland is normal. Mediastinum: Heart size is normal without significant pericardial effusion. The aorta is normal in caliber. 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 No suspicious lymphadenopathy. Lungs and airways: There are mild patchy groundglass opacities within the lungs. There is atelectasis within the dependent lungs. No pleural effusion or pneumothorax. The airways are normal. Solid organs: The liver is normal without focal lesion. The gallbladder is normal. There is no biliary ductal dilation. Pancreas is normal. Spleen is normal. Adrenal glands are normal. The kidneys are normal without hydronephrosis. Bowel: The stomach and small bowel are normal without obstruction. The colon and appendix are normal. Peritoneum: There is no intraperitoneal free fluid or free air. No suspicious lymphadenopathy. Vasculature: Calcification of the aorta without aneurysm. Musculoskeletal: Degenerative changes of the spine without suspicious osseous lesion or compression fracture. No acute fracture is seen. Pelvis: The uterus is surgically absent. No adnexal mass. The urinary bladder is normal. IMPRESSION: 1. No acute abnormality in the chest, abdomen, or pelvis. No acute fracture. 2. Patchy groundglass opacities in the lungs which could be seen with atypical infection or pulmonary edema. Dictated on workstation # [id number] Dict: 06/27/21 1613 Trans: 06/27/21 1622 AS6 [id number] Interpreted by: MARIA EUGENIA GARCIA DO Electronically signed by: Departure Impression Primary Impression: Abrasion, left knee, initial encounter Additional Impressions: Contusion of left knee, initial encounter Left shoulder pain Qualified Codes: M25.512 - Pain in left shoulder Fall Qualified Codes: W19.XXXA - Unspecified fall, initial encounter Fainting spell Pneumonia Qualified Codes: J18.9 - Pneumonia, unspecified organism Acute cervical myofascial strain Qualified Codes: S16.1XXA - Strain of muscle, fascia and tendon at neck level, initial encounter Disposition: 01 HOME, SELF-CARE Condition: Stable Departure-Patient Inst. Decision time for Depature: 16:56 Referrals: BONY EVANS MD (PCP/Family) Primary Care Physician Patient Instructions: Preventing Falls ED, Cervical Sprain ED, Opioids for Short-Term Treatment of Pain ED, Fainting, Adult ED, Pneumonia, Adult ED, Minor Contusion ED, Abrasions ED Add. Discharge Instructions: Stay well hydrated and get plenty of rest. Quit smoking to help with your lungs and breathing. Take full course of antibiotic and steroid to help with cough and breathing. Use the Tramadol as needed for severe pain. Check with clinic for continued concerns or worsening problems. Scripts Tramadol HCl (Tramadol HCl) 50 Mg Tablet 50 MG PO Q6H PRN for PAIN for 5 Days, #20 TAB 0 Refills Prov: CAROLIN RAMIREZ MD 06/27/21 Prednisone (Prednisone) 20 Mg Tab 40 MG PO DAILY for Pneumonia/Joint pain for 5 Days, #10 TAB 0 Refills Prov: CAROLIN RAMIREZ MD 06/27/21 Azithromycin (Azithromycin) 250 Mg Tablet 250 MG PO DAILY for 4 Days, #4 TAB 0 Refills Prov: CAROLIN RAMIREZ MD 06/27/21 CAROLIN RAMIREZ MD Jun 27, 2021 12:40
[2021-06-27] MEDS ORDERED: NS IV 1000 ML 1,000 ML IV STA (12:42)
[2021-06-27] MEDS ORDERED: ORPHENADRINE 60 MG/2 ML (NORFLEX) AMP (ED ONLY) IVP STA (12:42)
[2021-06-27] MEDS ORDERED: KETOROLAC 30 MG/ML VIAL IVP STA (12:42)
[2021-06-27 12:49] LABS: BASOPHILS % (AUTO) 1 % (0-10); EOSINOPHILS # (AUTO) 0.2 10^3/uL (0.0-0.3); EOSINOPHILS % (AUTO) 4 % (0-10); HEMATOCRIT 42 % (35-52); HEMOGLOBIN 13.9 g/dL (11.5-16.0); LYMPHOCYTES # (AUTO) 2.4 X 10^3 (1.0-4.0); LYMPHOCYTES % (AUTO) 41 % (12-44); MEAN CORPUSCULAR HEMOGLOBIN 31 pg (25-34); MEAN CORPUSCULAR HGB CONC 33 g/dL (32-36); MEAN CORPUSCULAR VOLUME 94 fL (80-99); MEAN PLATELET VOLUME 10.1 fL (9.0-12.2); MONOCYTES # (AUTO) 0.4 X 10^3 (0.0-1.0); MONOCYTES % (AUTO) 7 % (0-12); NEUTROPHILS # (AUTO) 2.8 X 10^3 (1.8-7.8); NEUTROPHILS % (AUTO) 48 % (42-75); PLATELET COUNT 239 10^3/uL (130-400); WHITE BLOOD COUNT 5.9 10^3/uL (4.3-11.0)
[2021-06-27] MEDS ORDERED: LACTATED RINGERS 0 ML IV ONE (13:06)
[2021-06-27 13:07] LABS: INR 0.9 (0.8-1.4); PROTHROMBIN TIME PATIENT 12.4 SEC (12.2-14.7)
[2021-06-27 13:09] LABS: BILIRUBIN,TOTAL 0.3 MG/DL (0.1-1.0); BUN/CREATININE RATIO 13; CALCIUM 9.3 MG/DL (8.5-10.1); CARBON DIOXIDE 29 MMOL/L (21-32); CHLORIDE 102 MMOL/L (98-107); CREATININE SERUM 0.79 MG/DL (0.60-1.30); GFR ESTIMATED 77; GLUCOSE 91 MG/DL (70-105); POTASSIUM 4.2 MMOL/L (3.6-5.0); SODIUM 138 MMOL/L (135-145)
[2021-06-27 13:10] LABS: ALANINE AMINOTRANSFERASE 31 U/L (0-55); ALKALINE PHOSPHATASE 82 U/L (40-136); TOTAL PROTEIN 7.1 GM/DL (6.4-8.2)
[2021-06-27 13:11] LABS: ALBUMIN 4.1 GM/DL (3.2-4.5)
[2021-06-27] MEDS ORDERED: HOLD METFORMIN - RECEIVED CONTRAST 20 ML VIAL IV SCH (13:45)
[2021-06-27] MEDS ORDERED: NS 100 ML (IVPB) BAG IV ONE (13:45)
[2021-06-27] MEDS ORDERED: CATHETER FLUSH 10 ML SYR IV PRN (13:45)
[2021-06-27] MEDS ORDERED: IOHEXOL 350 MG/ML 100 ML (OMNIPAQUE 350) VIAL IV ONE (13:45)
--- NOTE | 2021-06-27 14:47 | Diagnostic Imaging Report ---
INDICATION: Fall. TIME OF EXAM: 2:24 PM Three views of the left knee were obtained. Alignment is normal. Joint spaces are well maintained. Articular surfaces are smooth. No fracture, dislocation or effusion is seen. IMPRESSION: No acute bony abnormality is detected. Dictated by: Dictated on workstation # [id number]
--- NOTE | 2021-06-27 14:48 | Diagnostic Imaging Report ---
INDICATION: Fall. TIME OF EXAM: 2:28 PM Three views of the left shoulder were obtained. Glenohumeral and acromioclavicular alignment are normal. Acromiohumeral space is normal. No fracture or dislocation is seen. IMPRESSION: No acute bony abnormality is detected. Dictated by: Dictated on workstation # [id number]
--- NOTE | 2021-06-27 16:09 | Diagnostic Imaging Report ---
PROCEDURE: CT head and CT cervical spine without contrast. TECHNIQUE: Multiple contiguous axial images were obtained through the brain and cervical spine without the use of intravenous contrast. Sagittal and coronal reformations through the cervical spine were then performed. Auto Exposure Controls were utilized during the CT exam to meet ALARA standards for radiation dose reduction. INDICATION: Syncopal episode. Fall. Head and neck pain. Scalp contusion. COMPARISON: None. FINDINGS: CT head: No large acute territorial ischemia, mass, or hemorrhage. No midline shift or mass effect. The ventricles, cortical sulci, and basilar cisterns are patent and unremarkable. The calvarium is intact. The visualized paranasal sinuses are clear. CT cervical spine: No acute fracture or dislocation is seen in the cervical spine. No focal osseous lesions. Vertebral body heights are well-maintained. The craniocervical junction is well-maintained. Grjw-mk-aqqiavkp degenerative changes are seen in the cervical spine with disc osteophyte complexes and uncovertebral arthropathy, greatest at the C6-C7 level. Soft tissues of the neck are unremarkable. The included lung apices are clear. IMPRESSION: 1. No hemorrhage or focal intra-axial mass. No CT evidence of large acute territorial ischemia. 2. No acute fracture or dislocation in the cervical spine. Dictated by: Dictated on workstation # [id number]
--- NOTE | 2021-06-27 16:23 | Diagnostic Imaging Report ---
EXAMINATION: CT chest, abdomen and pelvis with intravenous contrast. TECHNIQUE: Multiple contiguous axial images were obtained through the chest, abdomen and pelvis after the uneventful administration of intravenous contrast. All CT scans use one or more of the following dose optimizing techniques: automated exposure control, MA and/or KvP adjustment based on patient size and exam type or iterative reconstruction. HISTORY: syncope, left shoulder/chest pain, L spine pain, L hip pain after fall COMPARISON: 06/03/2020. FINDINGS: Thyroid: The visualized thyroid gland is normal. Mediastinum: Heart size is normal without significant pericardial effusion. The aorta is normal in caliber. 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 No suspicious lymphadenopathy. Lungs and airways: There are mild patchy groundglass opacities within the lungs. There is atelectasis within the dependent lungs. No pleural effusion or pneumothorax. The airways are normal. Solid organs: The liver is normal without focal lesion. The gallbladder is normal. There is no biliary ductal dilation. Pancreas is normal. Spleen is normal. Adrenal glands are normal. The kidneys are normal without hydronephrosis. Bowel: The stomach and small bowel are normal without obstruction. The colon and appendix are normal. Peritoneum: There is no intraperitoneal free fluid or free air. No suspicious lymphadenopathy. Vasculature: Calcification of the aorta without aneurysm. Musculoskeletal: Degenerative changes of the spine without suspicious osseous lesion or compression fracture. No acute fracture is seen. Pelvis: The uterus is surgically absent. No adnexal mass. The urinary bladder is normal. IMPRESSION: 1. No acute abnormality in the chest, abdomen, or pelvis. No acute fracture. 2. Patchy groundglass opacities in the lungs which could be seen with atypical infection or pulmonary edema. Dictated by: Dictated on workstation # [id number]
[2021-06-27] MEDS ORDERED: AZITHROMYCIN 250 MG TAB (ZITHROMAX) PO STA (16:48)
[2021-06-27] MEDS ORDERED: methylPREDNISolone 125 MG (Solu-MEDROL) VIAL IVP STA (16:48)
[2021-06-27] MEDS ORDERED: PRD20T PO (16:53)
[2021-06-27] MEDS ORDERED: TRM50T PO (16:53)
[2021-06-27] MEDS ORDERED: AZIT250T12 PO (16:53)
[2021-06-27 17:00] VITALS: BP 147/89
== END 2021-06-27 17:00 | disposition home or self-care (01) ==
LOC: EDUNIT# 12:18 → ER FS 12:19
DX: S16.1XXA Strain of muscle, fascia and tendon at neck level, initial encounter (principal); S80.02XA Contusion of left knee, initial encounter; M25.512 Pain in left shoulder; J18.9 Pneumonia, unspecified organism; G40.909 Epilepsy, unspecified, not intractable, without status epilepticus; I10 Essential (primary) hypertension; E11.9 Type 2 diabetes mellitus without complications; J43.9 Emphysema, unspecified; F41.9 Anxiety disorder, unspecified; F31.9 Bipolar disorder, unspecified; E66.9 Obesity, unspecified; Z68.35 Body mass index [BMI] 35.0-35.9, adult; Z88.5 Allergy status to narcotic agent; Z79.52 Long term (current) use of systemic steroids; Z79.899 Other long term (current) drug therapy; W19.XXXA Unspecified fall, initial encounter
CPT/HCPCS: 36415; 70450; 71260; 72125; 73030; 73562; 74177; 80053; 83735; 83880; 84484; 85025; 85610; 85730; 93041

== ENCOUNTER → 2022-01-16 | Outpatient (CLI) | payer MEDICAID ==
[~2022-01-16] MED LIST changes: +TRM50T PO
--- NOTE | 2022-01-16 10:55 | Diagnostic Imaging Report ---
INDICATION: Sacroiliitis. EXAMINATION: Sacroiliac joints, 01/16/2022. FINDINGS: Four views of the sacroiliac joints. Both joints appear patent with no evidence for fusion. No adjacent erosive changes appreciated. No fractures identified. IMPRESSION: 1. Unremarkable appearance of the sacroiliac joints. Dictated by: Dictated on workstation # [id number]
== END ==
LOC: RAD FS 10:22
PROVIDERS: ATTEND Allergy & Immunology
DX: M46.1 Sacroiliitis, not elsewhere classified (principal)
CPT/HCPCS: 72202

== ENCOUNTER → 2022-02-09 | Outpatient (CLI) | payer MEDICAID ==
--- NOTE | 2022-02-09 16:58 | Diagnostic Imaging Report ---
INDICATION: Hip pain. FINDINGS: AP pelvis. Femoral heads are in normal articulation bilaterally. The articulating surfaces are smooth. No fractures. No hypertrophic bony changes. Joint spaces are well maintained. The SI joints are symmetrical with minimal sclerotic change. There are no soft tissue calcifications about the hip. IMPRESSION: Normal-appearing hips bilaterally. Dictated by: Dictated on workstation # [id number]
--- NOTE | 2022-02-09 17:07 | Diagnostic Imaging Report ---
EXAMINATION: Right hip radiograph EXAM DATE: 02/09/2022 COMPARISON: None available. HISTORY: BILATERAL HIP JOINT PAIN TECHNIQUE: 2 views of the right hip FINDINGS: There is no acute fracture, dislocation, or destructive osseous process. The joint spaces are normal. The soft tissues are normal. IMPRESSION: 1. No acute osseous abnormality of the right hip. Dictated by: Dictated on workstation # [id number]
--- NOTE | 2022-02-09 17:08 | Diagnostic Imaging Report ---
EXAMINATION: Left hip radiograph EXAM DATE: 02/09/2022 COMPARISON: None available. HISTORY: BILATERAL HIP JOINT PAIN TECHNIQUE: 2 views of the left hip FINDINGS: There is no acute fracture, dislocation, or destructive osseous process. The joint spaces are normal. The soft tissues are normal. IMPRESSION: 1. No acute osseous abnormality of the left hip. Dictated by: Dictated on workstation # [id number]
== END ==
LOC: RAD FS 13:50
PROVIDERS: ATTEND Nurse Practitioner
DX: M25.551 Pain in right hip (principal); M25.552 Pain in left hip
CPT/HCPCS: 72170; 73502